=== PATIENT | male | born 1995 ===

== ENCOUNTER 2017-04-15 14:19 | Emergency (ER) | payer MEDICAID ==
[2017-04-15 14:28] VITALS: BMI 26.6
[2017-04-15 14:29] VITALS: BP 146/76; PULSE 77; RESP 16; TEMP 98.8; O2SAT 99
[2017-04-15 14:53] LABS: URINE APPEARANCE SL CLOUDY (CLEAR); URINE BILIRUBIN NEGATIVE (NEGATIVE); URINE BLOOD MODERATE (NEGATIVE); URINE COLOR YELLOW (YELLOW); URINE GLUCOSE (UA) NEGATIVE (NEGATIVE); URINE KETONE NEGATIVE (NEGATIVE); URINE LEUKOCYTE ESTERASE MODERATE Leu/uL (NEGATIVE); URINE PROTEIN 30 mg/dL (<30 mg/dL)
[2017-04-15 15:03] LABS: URINE BACTERIA SMALL (NEG); URINE EPITHELIAL CELLS 0 - 2 /hpf (0-5); URINE RBC 0 - 2 /hpf (0-2); URINE WBC TNTC /hpf (0-6)
[2017-04-15] MEDS ORDERED: cefTRIAXone (Rocephin) 250 mg Inj IM STA (15:12)
--- NOTE | 2017-04-15 15:12 | ED PDOC ---
Arrival/HPI - General Chief Complaint: Male Genitourinary Time Seen by Provider: 04/15/17 14:30 Historian: Patient - History of Present Illness Narrative History of Present Illness (Text): 04/15/17 14:50 21 y/o male, no significant pmh, nkda, c/o burning urinary sensation for the past 2 days. Pt. has been expericing urinary frequency and burning sensation for the past 2 days, concerning about the gonorrhea and chlamydia, admits not always wearing condoms when having sexual intercourse, no penile discharge or testicular pain, no pelvic or abdominal pain, no chest pain or shortness of breath, no other medical or psychological complaints. Past Medical History - Provider Review Nursing Documentation Reviewed: Yes - Psychiatric Hx Substance Use: No Family/Social History - Physician Review Nursing Documentation Reviewed: Yes Family/Social History: Unknown Family HX Smoking Status: Former Smoker Hx Alcohol Use: No Hx Substance Use: No Allergies/Home Meds Allergies/Adverse Reactions: Allergies shellfish derived Allergy (Verified 04/15/17 14:28) ANAPHYLAXIS Review of Systems - Review of Systems Constitutional: absent: Fatigue, Fevers Eyes: absent: Vision Changes ENT: absent: Hearing Changes Respiratory: absent: SOB, Cough Cardiovascular: absent: Chest Pain Gastrointestinal: absent: Abdominal Pain Genitourinary Male: Dysuria, Frequency. absent: Hematuria, Urinary Output Changes Musculoskeletal: absent: Arthralgias, Myalgias Skin: absent: Rash, Pruritis, Skin Lesions Physical Exam Vital Signs Reviewed: Yes Vital Signs Temp Pulse Resp BP Pulse Ox 04/15/17 14:28 98.8 F 77 16 146/76 99 Temperature: Afebrile Blood Pressure: Normal Pulse: Regular Respiratory Rate: Normal Appearance: Positive for: Well-Appearing, Non-Toxic, Comfortable Pain Distress: None Mental Status: Positive for: Alert and Oriented X 3 - Systems Exam Head: Present: Atraumatic, Normocephalic Pupils: Present: PERRL Extroacular Muscles: Present: EOMI Conjunctiva: Present: Normal Mouth: Present: Moist Mucous Membranes Neck: Present: Normal Range of Motion Respiratory/Chest: Present: Clear to Auscultation, Good Air Exchange. No: Respiratory Distress, Accessory Muscle Use Cardiovascular: Present: Regular Rate and Rhythm, Normal S1, S2. No: Murmurs Abdomen: Present: Normal Bowel Sounds. No: Tenderness, Distention, Peritoneal Signs Genitourinary Male: Present: Normal External Genitalia. No: Penile Discharge, Testicle Tenderness, Penile Swelling, Masses, Hernias, Testicle Swelling Back: Present: Normal Inspection Upper Extremity: Present: Normal Inspection. No: Cyanosis, Edema Lower Extremity: Present: Normal Inspection. No: Edema Neurological: Present: GCS=15, CN II-XII Intact, Speech Normal Skin: Present: Warm, Dry, Normal Color. No: Rashes Psychiatric: Present: Alert, Oriented x 3, Normal Insight, Normal Concentration Medical Decision Making ED Course and Treatment: 04/15/17 15:13 -UA show +UTI -gc/chlamydia ordered, pt. preferred propylatic treatment. -Discharge home with macrobid, use condom in the future all the time, notify all your sexual partners for the STD testing, follow up with your own pmd within 2 days, return to the ER for any new or worsening signs or symptoms. - Lab Interpretations Lab Results: Lab Results 04/15/17 14:33: Urine Color Yellow, Urine Appearance Sl cloudy, Urine pH 6.0, Ur Specific [place] >= 1.030, Urine Protein 30 H, Urine Glucose (UA) Negative, Urine Ketones Negative, Urine Blood Moderate H, Urine Nitrate Negative, Urine Bilirubin Negative, Urine Urobilinogen 1.0 H, Ur Leukocyte Esterase Moderate H, Urine RBC 0 - 2, Urine WBC Tntc, Ur Epithelial Cells 0 - 2, Urine Bacteria Small I have reviewed the lab results: Yes Interpretation: Abnormal lab values (+UTI) - PA / FINISHING TRIMMER / Resident Statement MD/DO has reviewed & agrees with the documentation as recorded. Disposition/Present on Arrival - Present on Arrival Any Indicators Present on Arrival: No History of DVT/PE: No History of Uncontrolled Diabetes: No Urinary Catheter: No History of Decub. Ulcer: No History Surgical Site Infection Following: None - Disposition Have Diagnosis and Disposition been Completed?: Yes Diagnosis: UTI (urinary tract infection), Dysuria, Possible exposure to STD Disposition: HOME/ ROUTINE Disposition Time: : Patient Plan: Discharge Condition: GOOD Additional Instructions: Discharge home with macrobid, use condom in the future all the time, notify all your sexual partners for the STD testing, follow up with your own pmd within 2 days, return to the ER for any new or worsening signs or symptoms. Prescriptions: Nitrofurantoin Macrocrystals [Macrobid] 100 mg PO BID #14 cap Phenazopyridine [Pyridium] 200 mg PO TID #6 tab Referrals: [facility] at [facility] [place] [Outside] - Follow up with primary Forms: WORK NOTE
== END 2017-04-15 15:36 | disposition home or self-care (01) ==
LOC: ED 14:19
DX: N39.0 Urinary tract infection, site not specified (principal); R30.0 Dysuria
CPT/HCPCS: 81001; 87086; 87491; 87591; 96372; 99283; J0696

== ENCOUNTER 2017-06-15 23:31 | Observation (INO) | payer MEDICAID ==
--- NOTE | 2017-06-16 00:19 | ED PDOC ---
Arrival/HPI - General Time Seen by Provider: 06/16/17 00:12 Historian: Patient - History of Present Illness Narrative History of Present Illness (Text): 06/16/17 00:16 22 y/o male, no significant pmh, nkda, c/o throat pain x 4 days with the fever and voice change. Pt. stated that he has been having the rt. sided throat pain x 4-5 days, had an episode of fever, associated with painful swallowing and voice change, no drooling, started on the augmentin 875/125 today as a single dose. Pt. has no chest pain or shortness of breath, no numbness or tingling, no palpitation. Pt. also stated that he has been feeling depressed and suicidal recently as one of his friends recently pass away. Pt. stated that he has thoughts of harming himself but no action taken. Past Medical History - Provider Review Nursing Documentation Reviewed: Yes - Psychiatric Hx Substance Use: No Family/Social History - Physician Review Nursing Documentation Reviewed: Yes Family/Social History: Unknown Family HX Smoking Status: Former Smoker Hx Alcohol Use: No Hx Substance Use: No Allergies/Home Meds Allergies/Adverse Reactions: Allergies shellfish derived Allergy (Verified 04/15/17 14:28) ANAPHYLAXIS Review of Systems - Review of Systems Constitutional: Fevers. absent: Fatigue ENT: Voice Changes, Sore Throat. absent: Hearing Changes Respiratory: absent: SOB, Cough, Sputum Cardiovascular: absent: Chest Pain Gastrointestinal: absent: Abdominal Pain, Nausea, Vomiting Musculoskeletal: absent: Arthralgias, Myalgias Neurological: absent: Headache, Dizziness Psychiatric: Depression, Suicidal Ideation. absent: Anxiety Physical Exam Vital Signs Temp Pulse Resp BP Pulse Ox 06/16/17 04:00 80 16 126/78 99 06/16/17 02:00 84 16 125/80 98 06/16/17 00:52 98.2 F 85 16 126/82 100 - Systems Exam Head: Present: Atraumatic, Normocephalic Pupils: Present: PERRL Extroacular Muscles: Present: EOMI Conjunctiva: Present: Normal Mouth: Present: Moist Mucous Membranes Pharnyx: Present: TONSILS ENLARGED (Rt. ), Peritonsilar Swelling (rt. side), Muffled/Hoarse Voice. No: Uvular Deviation, Strider, Soft Palate/Uvular Edema Nose (External): No: Abrasion, Contusion Nose (Internal): No: No Active Bleeding, Rhinorrhea, Septal Hematoma, Epistaxis Neck: Present: Normal Range of Motion, Trachea Midline. No: Meningeal Signs, MIDLINE TENDERNESS, Paraspinal Tenderness, Lymphadenopathy Respiratory/Chest: Present: Clear to Auscultation, Good Air Exchange. No: Respiratory Distress, Accessory Muscle Use Cardiovascular: Present: Regular Rate and Rhythm, Normal S1, S2. No: Murmurs Abdomen: Present: Normal Bowel Sounds. No: Tenderness, Distention, Peritoneal Signs, Rebound, Guarding Back: Present: Normal Inspection Upper Extremity: Present: Normal Inspection. No: Cyanosis, Edema Lower Extremity: Present: Normal Inspection. No: Edema Neurological: Present: GCS=15, Speech Normal, Motor Func Grossly Intact, Gait Normal, Memory Normal Skin: Present: Warm, Dry, Normal Color. No: Rashes Psychiatric: Present: Alert, Oriented x 3, Normal Insight, Normal Concentration Medical Decision Making ED Course and Treatment: 06/16/17 00:20 -labs/ua/uds -ekg/cxr -CT soft tissue neck -IV toradol/clindamycin/decadron -will call PES 06/16/17 03:38 -EKG: NSR @ 81 BPM, no ST elevation or depression, no T wave inversion -Chest x-ray: no active disease -CT soft tissue neck performed without the contrast as he claimed that he is allergic to contrast: inconclusive and can not rule out rt. peritonsillar abscess -Labs are non-significant -Pt. is airway patent. -Pt. is not medically clear or stable to be admitted to the psychiatric floor as he will need to be admitted after evaluated the PES [place]. -Pt. will need to be admitted medically to rule out rt. peritonsillar abscess as there is swelling with muffling sound on the rt. peritonsillar region. -I spoke to Dr. Kent about the case/labs/radiology result, agreed to be admitted medically with psychiatric consult. -I Spoke to the medical coding specialist as well, she agreed to evaluate the patient. -I spoke to Dr. Rankin and he will put in the admission -I spoke to the patient and he agreed to be admitted for medical and psychiatric care. - Lab Interpretations Lab Results: 06/16/17 01:05 06/16/17 01:05 Lab Results 06/16/17 01:05: Alcohol, Quantitative < 10 06/16/17 01:05: Sodium 137, Potassium 3.9, Chloride 98, Carbon Dioxide 28, Anion Gap 15, BUN 12, Creatinine 0.8, Est GFR ( Amer) > 60, Est GFR (Non- Af Amer) > 60, Random Glucose 85, Calcium 9.2, Total Bilirubin 1.1, AST 24, ALT 33, Alkaline Phosphatase 61, Total Protein 7.5, Albumin 4.5, Globulin 3.0, Albumin/Globulin Ratio 1.5 06/16/17 01:05: WBC 12.1 H, RBC 5.38, Hgb 13.6 L, Hct 41.1 L, MCV 76.4 L, MCH 25.3, MCHC 33.1, RDW 14.5, Plt Count 217, MPV 8.5, Gran % 68.6 H, Lymph % (Auto ) 14.9 L, [place] % (Auto) 16.0 H, Eos % (Auto) 0.4 L, Baso % (Auto) 0.1, Gran # 8.32 H, Lymph # 1.8, [place] # 1.9 H, Eos # 0.1, Baso # 0.01 I have reviewed the lab results: Yes Interpretation: No clinic. lab abnormalty - RAD Interpretation Radiology Orders: 06/16/17 00:22 CHEST PORTABLE [RAD] Stat 06/16/17 02:40 NECK SOFT TISSUE W/O CONTRAST [CT] Stat No active disease for chest xray. Compliance Coordinator: Radiologist - Medication Orders Current Medication Orders: Discontinued Medications Dexamethasone (Decadron Inj) 10 mg IVP STAT STA Stop: 06/16/17 00:23 Last Admin: 06/16/17 01:14 Dose: 10 mg Famotidine (Pepcid) 20 mg PO 1000,2200 NAVEEN Last Admin: 06/17/17 10:32 Dose: 20 mg Heparin Sodium (Porcine) (Heparin) 5,000 units SC Q12 NAVEEN PRN Reason: Protocol Last Admin: 06/16/17 21:27 Dose: 5,000 units Clindamycin Phosphate 900 mg/ (Sodium Chloride) 106 mls @ 106 mls/hr IVPB STAT STA PRN Reason: Protocol Stop: 06/16/17 01:21 Last Admin: 06/16/17 01:14 Dose: 106 mls/hr Sodium Chloride (Sodium Chloride 0.9%) 1,000 mls @ 999 mls/hr IV .Q1H1M STA Stop: 06/16/17 01:22 Last Admin: 06/16/17 01:15 Dose: 999 mls/hr Clindamycin Phosphate 900 mg/ (Sodium Chloride) 106 mls @ 106 mls/hr IVPB Q8 NAVEEN PRN Reason: Protocol Last Admin: 06/17/17 13:25 Dose: 106 mls/hr Sodium Chloride (Sodium Chloride 0.9%) 1,000 mls @ 100 mls/hr IV .Q10H NAVEEN Last Admin: 06/16/17 17:15 Dose: 100 mls/hr Iohexol (Omnipaque 350 100 Ml) Confirm Administered Dose 350 mg .ROUTE .STK-MED ONE Stop: 06/16/17 02:25 Ketorolac Tromethamine (Toradol) 30 mg IVP STAT STA Stop: 06/16/17 00:23 Last Admin: 06/16/17 01:13 Dose: 30 mg Lactobacillus Acidophilus (Bacid Acidophilus) 1 cap PO TID [facility] Last Admin: 06/17/17 14:02 Dose: 1 cap - PA / TITLE SEARCHER / Resident Statement MD/DO has reviewed & agrees with the documentation as recorded. Disposition/Present on Arrival - Present on Arrival Any Indicators Present on Arrival: No History of DVT/PE: No History of Uncontrolled Diabetes: No Urinary Catheter: No History of Decub. Ulcer: No History Surgical Site Infection Following: None - Disposition Have Diagnosis and Disposition been Completed?: Yes Diagnosis: Tonsillitis, Sensation of swollen throat, Change of voice, Depression, Suicidal thoughts Disposition: HOSPITALIZED Disposition Time: 03:44 Patient Plan: Admission Condition: STABLE
[2017-06-16 00:20] VITALS: BMI 32.3
[2017-06-16] MEDS ORDERED: Sodium Chloride 0.9% 1,000 ML IV STA (00:22)
[2017-06-16 01:16] LABS: BASO # 0.01 K/mm3 (0.0-2.0); BASO % 0.1 % (0.0-3.0); EOS # 0.1 (0.0-0.7); EOS % 0.4 % (1.5-5.0); GRAN # 8.32 (1.4-6.5); GRAN % 68.6 % (50.0-68.0); HEMOGLOBIN 13.6 gm/dL (14.0-18.0); LYMPH # 1.8 (1.2-3.4); LYMPH % 14.9 % (22.0-35.0); MEAN CELL VOLUME 76.4 fL (80.0-105.0); MEAN CORPUSCULAR HEMOGLOBIN 25.3 pg (25.0-35.0); MEAN CORPUSCULAR HGB CONC 33.1 g/dl (31.0-37.0); MEAN PLATELET VOLUME 8.5 fl (7.0-11.0); MONO # 1.9 (0.1-0.6); PLATELET COUNT 217 10^3/uL (120.0-450.0); RBC 5.38 10^6/uL (3.5-6.1); RED CELL DISTRIBUTION WIDTH 14.5 % (11.5-14.5); WHITE BLOOD COUNT 12.1 10^3/ul (4.5-11.0)
[2017-06-16 01:28] LABS: ALB/GLOB RATIO 1.5 (1.1-1.8); ALBUMIN 4.5 g/dL (3.0-4.8); ALT/SGPT 33 U/L (7-56); AST/SGOT 24 U/L (15-59); BLOOD UREA NITROGEN 12 mg/dL (7-21); CALCIUM 9.2 mg/dL (8.4-10.5); GFR AFRICAN-AMERICAN > 60; GFR NON-AFRICAN AMERICAN > 60
[2017-06-16] MEDS ORDERED: Iohexol 350 MG/100 ML VIAL ONE (02:24)
--- NOTE | 2017-06-16 03:09 | CT ---
EXAM: CT Neck Without Intravenous Contrast CLINICAL HISTORY: 22 years old, male; Pain; Neck pain and painful swallowing; Additional info: Rt. Peritonsillar swelling? TECHNIQUE: Axial computed tomography images of the neck without intravenous contrast. This CT exam was performed using one or more of the following dose reduction techniques: automated exposure control, adjustment of the mA and/or kV according to patient size, and/or use of iterative reconstruction technique. Coronal and sagittal reformatted images were created and reviewed. COMPARISON: No relevant prior studies available. FINDINGS: Limitations: Lack of intravenous contrast, limiting evaluation for abscess. Nasopharynx: Unremarkable. Oropharynx: Enlargement of RIGHT palatine tonsil with adjacent mucosal thickening of RIGHT lateral hypopharynx. Partial effacement of RIGHT vallecula and piriform sinus. Vague hypodensity within RIGHT peritonsillar region, suboptimally evaluated. Hypopharynx: See above. Larynx: See above. Trachea: Unremarkable. Retropharyngeal space: Unremarkable. Submandibular/parotid glands: Unremarkable. Glands are normal in size. Thyroid: Unremarkable. No enlarged or calcified nodules. Bones/joints: No acute fracture. Soft tissues: Unremarkable. Vasculature: No acute findings. Lymph nodes: Shotty cervical lymph nodes, likely reactive. Sinuses: Small RIGHT maxillary retention cyst. Lung apices: Unremarkable as visualized. IMPRESSION: 1. Findings compatible with RIGHT tonsillitis/pharyngitis. Peritonsillar abscess not excluded. Consider contrast CT. Clinical correlation and follow up are recommended to exclude underlying pathology. 2. Incidental/non-acute findings are described above.
--- NOTE | 2017-06-16 03:31 | CP.PCM.HP ---
<Jenniffer Yin - Last Filed: 06/16/17 05:18> History of Present Illness - History of Present Illness History of Present Illness: 22 year old M PMHx depression presents to ER with suicidal ideations and R throat swelling for 1 week. Patient reports he went to a hospital on Sunday and received a Z-Pack which did not help and he went to a clinic today and was discharged on amoxicillin. However he reported that he was started to develop fever, chills, and sweats and decided to come to the ED. Patient reported that in clinic he had a temp 100.2F. Upon examining patient, he had received steroid IM and thus reported the inflammation had subsided and that the pain was now 2-3/10. He reported that it felt like a dull, numb pain. However, earlier this week, the pain was so severe that he was unable to swallow liquids and could not eat well. He also reported a headache and sore throat. Patient denied changes in vision, hearing, dizziness, chest pain, palpitations, SOB, cough, abd pain, nausea, vomiting, bowel/bladder complaints, pain/swelling in his legs bilaterally. He did admit to suicidal ideations and feeling down, depressed, and lost. He denied having a plan. Patient also denied any homicidal ideations, auditory, and visual hallucinations. He denied any recent travel, sick contacts, and recent illnesses. PMD: None PMHx: depression Meds: denies ALL: shellfish PSurgHx: denies FamHx: denies SocHx: quit tobacco when he was 19 years old; socially drinks EtOH, smokes weed occasionally, works at [employer] and lives with a roommate Present on Admission - Present on Admission Any Indicators Present on Admission: No Review of Systems - Constitutional Constitutional: As Per HPI, Chills, Fever, Headache. absent: Weakness - EENT Eyes: As Per HPI. absent: Change in Vision Ears: As Per HPI. absent: Dizziness Nose/Mouth/Throat: As Per HPI, Sore Throat, Throat Swelling - Cardiovascular Cardiovascular: As Per HPI. absent: Chest Pain, Dyspnea - Respiratory Respiratory: As Per HPI. absent: Cough, Dyspnea, Chest Congestion - Gastrointestinal Gastrointestinal: As Per HPI. absent: Abdominal Pain, Constipation, Diarrhea, Nausea, Vomiting - Genitourinary Genitourinary: As Per HPI. absent: Dysuria, Hematuria, Pyuria - Musculoskeletal Musculoskeletal: As Per HPI. absent: Numbness, Tingling - Integumentary Integumentary: As Per HPI. absent: Dry Skin, Pruritus, Rash - Neurological Neurological: As Per HPI. absent: Dizziness, Headaches, Weakness - Psychiatric Psychiatric: As Per HPI, Depression, Suicidal Ideation - Endocrine Endocrine: As Per HPI. absent: Polydipsia, Polyphagia, Polyuria - Hematologic/Lymphatic Hematologic: As Per HPI. absent: Easy Bleeding, Easy Bruising, Lymphadenopathy Past Patient History - Infectious Disease Hx of Infectious Diseases: None - Past Social History Smoking Status: Former Smoker - CARDIAC Hx Cardiac Disorders: No Hx Hypertension: No - PULMONARY Hx Tuberculosis: No - NEUROLOGICAL HX Cerebrovascular Accident: No Hx Seizures: No - HEMATOLOGICAL/ONCOLOGICAL Hx Cancer: No Hx Human Immunodeficiency Virus (HIV): No - GENITOURINARY/GYNECOLOGICAL Hx Sexually Transmitted Disorders: No - PSYCHIATRIC Hx Substance Use: No - SURGICAL HISTORY Hx Surgeries: No Meds Allergies/Adverse Reactions: Allergies Allergy/AdvReac Type Severity Reaction Status Date / Time shellfish derived Allergy ANAPHYLAXIS Verified 04/15/17 14:28 Physical Exam - Constitutional Appears: Well, Non-toxic, No Acute Distress - Head Exam Head Exam: ATRAUMATIC, NORMAL INSPECTION, NORMOCEPHALIC - Eye Exam Eye Exam: EOMI, Normal appearance, PERRL. absent: Conjunctival injection, Scleral icterus Pupil Exam: NORMAL ACCOMODATION - ENT Exam ENT Exam: Mucous Membranes Moist Additional comments: R tonsils enlarged and R peritonsilar swelling No Uvular Deviation, Strider, Soft Palate/Uvular Edema, muffled/hoarse voice - Respiratory Exam Respiratory Exam: Clear to Auscultation Bilateral, NORMAL BREATHING PATTERN. absent: Accessory Muscle Use, Rales, Rhonchi, Wheezes, Respiratory Distress - Cardiovascular Exam Cardiovascular Exam: REGULAR RHYTHM, RRR, +S1. absent: Systolic Murmur - GI/Abdominal Exam GI & Abdominal Exam: Normal Bowel Sounds, Soft. absent: Firm, Guarding, Rigid, Tenderness - Extremities Exam Extremities exam: Positive for: normal capillary refill, normal inspection, pedal pulses present. Negative for: pedal edema, tenderness - Back Exam Back exam: NORMAL INSPECTION. absent: rash noted - Neurological Exam Neurological exam: Alert, Oriented x3 - Psychiatric Exam Psychiatric exam: Depressed, Flat Affect Results - Vital Signs Recent Vital Signs: Last Vital Signs Temp 98.2 F 06/16/17 00:52 Pulse 85 06/16/17 00:52 Resp 16 06/16/17 00:52 BP 126/82 06/16/17 00:52 Pulse Ox 100 06/16/17 00:52 - Labs Result Diagrams: 06/16/17 01:05 06/16/17 01:05 Labs: Laboratory Results - last 24 hr 06/16/17 06/16/17 06/16/17 01:05 01:05 01:05 WBC 12.1 H RBC 5.38 Hgb 13.6 L Hct 41.1 L MCV 76.4 L MCH 25.3 MCHC 33.1 RDW 14.5 Plt Count 217 MPV 8.5 Gran % 68.6 H Lymph % (Auto) 14.9 L [place] % (Auto) 16.0 H Eos % (Auto) 0.4 L Baso % (Auto) 0.1 Gran # 8.32 H Lymph # 1.8 [place] # 1.9 H Eos # 0.1 Baso # 0.01 Sodium 137 Potassium 3.9 Chloride 98 Carbon Dioxide 28 Anion Gap 15 BUN 12 Creatinine 0.8 Est GFR ( Amer) > 60 Est GFR (Non-Af Amer) > 60 Random Glucose 85 Calcium 9.2 Total Bilirubin 1.1 AST 24 ALT 33 Alkaline Phosphatase 61 Total Protein 7.5 Albumin 4.5 Globulin 3.0 Albumin/Globulin Ratio 1.5 Alcohol, Quantitative < 10 Assessment & Plan - Assessment and Plan (Free Text) Assessment: 22 year old M PMHx depression presents to ER with suicidal ideations and R throat swelling for 1 week Plan: R peritonsillitis -r/o abscess -CT soft tissue neck: right tonsillitis/pharyngitis. Peritonsillar abscess not excluded. Consider contrast CT -f/u blood culture -Clindamycin 900mg ivpb q8 -ENT Dr. Ureña consulted- f/u recommendations Depression and suicidal ideations -Psych Dr. Hidalgo consulted- f/u recommendations -1:1 sitter PPX -SCDs -Heparin 5000u sc q12 -Pepcid 20mg po bid -NPO -NS @ 100cc/hr -Florastor 1cap po tid Case discussed with Dr. Donte Yin PGY2 <Jacob Kent - Last Filed: 06/16/17 05:54> Results - Vital Signs Recent Vital Signs: Last Vital Signs Temp 98.2 F 06/16/17 00:52 Pulse 80 06/16/17 04:00 Resp 16 06/16/17 04:00 BP 126/78 06/16/17 04:00 Pulse Ox 99 06/16/17 04:00 - Labs Result Diagrams: 06/16/17 01:05 06/16/17 01:05 Attending/Attestation - Attestation I have personally seen and examined this patient.: Yes I have fully participated in the care of the patient.: Yes I have reviewed all pertinent clinical information: Yes Notes (Text): 06/16/17 05:53 Patient was seen when he was in the PES room in the ER. Agree with history, physical examination, assessment and plan.
[2017-06-16] MEDS: Sodium Chloride 0.9% 1,000 ML IV SCH ×2 (05:37→17:15)
[2017-06-16 06:25] VITALS: RESP 20; O2SAT 100
--- NOTE | 2017-06-16 08:35 | RAD ---
HISTORY: medical clearance COMPARISON: No prior. FINDINGS: LUNGS: No active pulmonary disease. PLEURA: No significant pleural effusion identified, no pneumothorax apparent. CARDIOVASCULAR: Normal. OSSEOUS STRUCTURES: No significant abnormalities. VISUALIZED UPPER ABDOMEN: Normal. OTHER FINDINGS: None. IMPRESSION: No active disease.
[2017-06-16] MEDS: Lactobacillus Acidophilus 500 MU Cap PO SCH ×3 (09:43→17:14)
--- NOTE | 2017-06-16 11:08 | CARD ---
APPROVED REPORT EKG Measurement Heart [id number] <Conclusion> Normal sinus rhythm Minimal voltage criteria for LVH, may be normal variant Borderline ECG
--- NOTE | 2017-06-17 00:21 | CON ---
DATE: 06/16/2017 EAR, NOSE, AND THROAT CONSULTATION REFERRING PHYSICIAN: Dr. Jenniffer Yin. REASON FOR CONSULTATION: Rule out peritonsillar abscess. HISTORY OF PRESENT ILLNESS: This is a 22-year-old male with past medical history of depression and also previous peritonsillar abscess, who presents to [facility] with throat pain and throat swelling that started approximately 5 days ago. The patient reports he went to the hospital and received Z-Kalin which did not help with the symptoms. Afterwards, he went to the clinic and was given amoxicillin. However, that also did not help with the symptoms. At home, he started to develop fever, chills, and throat pain became worse, therefore, he came to the emergency room. In the emergency room, the patient had a CT scan of his neck which was noncontrast and demonstrated enlargement of the right palatine tonsil with adjacent mucosal thickening. However, no discrete abscess was able to be visualized. The patient was subsequently admitted and placed on clindamycin and given Decadron, Pepcid, and Toradol. The ENT has been consulted to rule out peritonsillar abscess. Upon examination, the patient states that he has been having poor appetite and unable to eat. He also reports that 4 months ago he had a similar presentation and his peritonsillar abscess was drained by an manager fleet in the office. The patient also states that he is feeling better since admission with decreased pain. He denies drooling, odynophagia, shortness of breath, difficulty breathing, fevers, and chills. PAST MEDICAL HISTORY: Significant for previous peritonsillar abscess and depression. PAST SURGICAL HISTORY: None. MEDICATIONS: None. ALLERGIES: SHELLFISH. SOCIAL HISTORY: Ex-tobacco smoker. Drinks alcohol socially and smokes marijuana occasionally. REVIEW OF SYSTEMS: Review of systems is negative as per HPI. PHYSICAL EXAMINATION VITAL SIGNS: Temperature of 98.7, pulse rate 78, blood pressure 132/81, respirations 20, and O2 saturation 100% on room air. GENERAL: He is awake, alert, and oriented x3, in no acute distress, sitting comfortably. HEENT: Eyes; extraocular movements intact. Ears; external auricles unremarkable. Nose; patent bilaterally. No discharge and no epistaxis. Oral cavity/oropharynx; lips are unremarkable. Tongue is mobile and midline. Mucosa is moist. There is soft palate asymmetry with bulging of the right soft palate. There is enlargement of the right tonsil about 2+ and the left tonsil is about 1+. There is slight uvula deviation to the left. There is no tonsillar exudates. There is no pharyngeal erythema or edema. NECK: Soft, slightly tender to palpation. No lymphadenopathy. Trachea midline. No thyromegaly. LUNGS: Respirations are nonlabored and equal bilaterally. LABORATORY DATA: He has a white count of 12.1, hemoglobin 13.6, hematocrit 41.1, and platelets 217. IMAGING: He has a soft tissue neck CAT scan which reads enlargement of right palatine tonsil with adjacent mucosal thickening of right lateral hypopharynx, partial effacement of right vallecula and pyriform sinus, vague hypodensity within right peritonsillar region, suboptimally evaluated. Findings are compatible with a right tonsillitis, pharyngitis, peritonsillar abscess cannot be excluded. PROCEDURE: Incision and drainage of right peritonsillar abscess. After obtaining verbal and informed consent, Cetacaine spray was used to numb the right peritonsillar region. Afterwards, 1% lidocaine was used to add local anesthesia to the right peritonsillar region. Afterwards, an 18-gauge needle and a 10 mL syringe was used to enter the right peritonsillar space with 3 mL purulent material being drawn which was sent for culture to the lab. ASSESSMENT AND PLAN: This is a 22-year-old male with past medical history of prior peritonsillar abscess, who presents again with peritonsillar abscess, status post incision and drainage at the bedside. At this point, we would recommend that the patient stay overnight for an additional several courses of IV antibiotics and he would be okay to discharge home tomorrow morning or afternoon. At that point, I would recommend discharging home on clindamycin p.o. x7 days. I would also like to follow up with the culture from the peritonsillar abscess. At this point, the patient has been n.p.o., but can be started on a regular diet. In addition, the patient was instructed to follow up with our office to schedule a followup tonsillectomy as he has had 2 episodes of peritonsillar abscess at this point, after which we usually recommend tonsillectomy. The patient verbalizes understanding with the plan and was in agreement. The remainder of the management is up to medical team. Thank you for allowing us to participate in this patient's care. Keaton Ureña DO
[2017-06-17 07:56] LABS: BASO # 0.01 K/mm3 (0.0-2.0); BASO % 0.1 % (0.0-3.0); EOS # 0.1 (0.0-0.7); EOS % 0.9 % (1.5-5.0); GRAN # 3.62 (1.4-6.5); GRAN % 51.9 % (50.0-68.0); HEMOGLOBIN 13.2 gm/dL (14.0-18.0); LYMPH # 2.3 (1.2-3.4); LYMPH % 32.6 % (22.0-35.0); MEAN CELL VOLUME 76.5 fL (80.0-105.0); MEAN CORPUSCULAR HEMOGLOBIN 24.6 pg (25.0-35.0); MEAN CORPUSCULAR HGB CONC 32.1 g/dl (31.0-37.0); MEAN PLATELET VOLUME 8.8 fl (7.0-11.0); MONO % 14.5 % (1.0-6.0); PLATELET COUNT 249 10^3/uL (120.0-450.0); RBC 5.37 10^6/uL (3.5-6.1); RED CELL DISTRIBUTION WIDTH 14.4 % (11.5-14.5)
[2017-06-17 08:19] LABS: ALB/GLOB RATIO 1.2 (1.1-1.8); ALBUMIN 3.9 g/dL (3.0-4.8); ALT/SGPT 23 U/L (7-56); AST/SGOT 19 U/L (15-59); BLOOD UREA NITROGEN 12 mg/dL (7-21); GFR AFRICAN-AMERICAN > 60; GFR NON-AFRICAN AMERICAN > 60
[2017-06-17 08:33] VITALS: BP 133/62; PULSE 73; TEMP 97.5
[2017-06-17] MEDS: Lactobacillus Acidophilus 500 MU Cap PO SCH ×2 (10:32→14:02)
--- NOTE | 2017-06-17 11:49 | CON ---
DATE: 06/17/2017 HISTORY OF PRESENT ILLNESS: The patient is a 22-year-old male with past medical history of depression, no hospitalization, two prior suicide attempts. No current outpatient treatment or medication, who is being treated on the medical floor for peritonsillar abscess. Psychiatry was consulted for the patient's report of depression and active suicidal thoughts. I reviewed recent notes and the patient at bedside, the patient is alert and well oriented to circumstances, month and year as well as location. He presents as a very good and incredible historian during interview today. The patient reports history of depression since late 03/2017, indicates that he is suffering with some personal family issues and in general "feeling stuck and lost." He endorses symptoms of anhedonia, but has been able to go to the gym and socialize with friends. Had poor sleep, however, this has improved and moodiness as well as feeling overwhelmed. The patient does admit to intermittent fleeting thoughts of wishes, however, denies having any active suicidal thoughts. Another stressor includes one of his friends committed suicide two weeks ago. 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 The patient is coherent, goal directed. Denies any hallucinations. Eye contact is good and affect is congruent to reported mood. He has been in very good control in the unit and insight and judgement are considered to be good. Medications, vitals and labs were reviewed by this provider. PSYCHIATRIC HISTORY: The patient denies any psychiatric admissions. Denies any history of psychiatric medications or seeing therapist or a psychiatrist. The patient reports suicide attempts, one as a 17-year-old, he had considered hanging himself and one as an 20-year-old, he overdosed on pills, however, he woke up the next day and did not seek psychiatric help. FAMILY HISTORY: Text. SOCIAL HISTORY: The patient was born and raised in [place]. He is single. He has no children. He lives with his roommate. He graduated high school. 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 He used to smoke marijuana daily, however, he has cut down and now only smokes very occasionally, last use was 2-1/2 weeks ago. The patient is actually in the process of quitting. Denies any other drug use. IMPRESSION: Major depression, moderate. RECOMMENDATIONS: The patient at this time defers on initiating an antidepressant, however, he is quite open to obtaining therapy and psychiatric referral, while he is being followup on once he is discharged. He is psychiatrically clear for discharge. He does not present to be an active danger to himself and has demonstrated very good insight and judgement including his current symptoms and he is quite organized and has good support system. Psychiatrist signed off at this time. Ta Kimble MD
--- NOTE | 2017-06-17 17:37 | CP.PCM.DIS ---
Provider - Provider Date of Admission: 06/16/17 03:30 Attending physician: Helder Short MD Primary care physician: None Consults: Psychiatry: ENT: Time Spent in preparation of Discharge (in minutes): 30 Hospital Course - Lab Results Lab Results: Micro Results 06/16/17 07:43 Blood-Venous Blood Culture - Preliminary NO GROWTH AFTER 24 HOURS 08 07:43 Blood-Venous Blood Culture - Preliminary NO GROWTH AFTER 24 HOURS Most Recent Lab Values WBC 7.0 10^3/ul (4.5-11.0) D 06/17/17 07:00 RBC 5.37 10^6/uL (3.5-6.1) 06/17/17 07:00 Hgb 13.2 gm/dL (14.0-18.0) L 06/17/17 07:00 Hct 41.1 % (42.0-52.0) L 06/17/17 07:00 MCV 76.5 fL (80.0-105.0) L 06/17/17 07:00 MCH 24.6 pg (25.0-35.0) L 06/17/17 07:00 MCHC 32.1 g/dl (31.0-37.0) 06/17/17 07:00 RDW 14.4 % (11.5-14.5) 06/17/17 07:00 Plt Count 249 10^3/uL (120.0-450.0) 06/17/17 07:00 MPV 8.8 fl (7.0-11.0) 06/17/17 07:00 Gran % 51.9 % (50.0-68.0) 06/17/17 07:00 Lymph % (Auto) 32.6 % (22.0-35.0) 06/17/17 07:00 [place] % (Auto) 14.5 % (1.0-6.0) H 06/17/17 07:00 Eos % (Auto) 0.9 % (1.5-5.0) L 06/17/17 07:00 Baso % (Auto) 0.1 % (0.0-3.0) 06/17/17 07:00 Gran # 3.62 (1.4-6.5) 06/17/17 07:00 Lymph # 2.3 (1.2-3.4) 06/17/17 07:00 [place] # 1.0 (0.1-0.6) H 06/17/17 07:00 Eos # 0.1 (0.0-0.7) 06/17/17 07:00 Baso # 0.01 K/mm3 (0.0-2.0) 06/17/17 07:00 Sodium 137 mmol/L (132-148) 06/17/17 07:00 Potassium 4.0 mmol/L (3.6-5.0) 06/17/17 07:00 Chloride 102 mmol/L (98-107) 06/17/17 07:00 Carbon Dioxide 26 mmol/L (21-33) 06/17/17 07:00 Anion Gap 13 (10-20) 06/17/17 07:00 BUN 12 mg/dL (7-21) 06/17/17 07:00 Creatinine 0.8 mg/dL (0.5-1.4) 06/17/17 07:00 Est GFR ( Amer) > 60 06/17/17 07:00 Est GFR (Non-Af Amer) > 60 06/17/17 07:00 Random Glucose 83 mg/dL (70-110) 06/17/17 07:00 Calcium 9.0 mg/dL (8.4-10.5) 06/17/17 07:00 Phosphorus 3.4 mg/dL (2.5-4.5) 06/17/17 07:00 Magnesium 2.0 mg/dL (1.7-2.2) 06/17/17 07:00 Total Bilirubin 0.6 mg/dL (0.2-1.3) 06/17/17 07:00 AST 19 U/L (15-59) 06/17/17 07:00 ALT 23 U/L (7-56) 06/17/17 07:00 Alkaline Phosphatase 52 U/L (38-133) 06/17/17 07:00 Total Protein 7.1 g/dL (5.8-8.3) 06/17/17 07:00 Albumin 3.9 g/dL (3.0-4.8) 06/17/17 07:00 Globulin 3.2 gm/dL 06/17/17 07:00 Albumin/Globulin Ratio 1.2 (1.1-1.8) 06/17/17 07:00 Alcohol, Quantitative < 10 mg/dL (0-10) 06/16/17 01:05 - Hospital Course Hospital Course: Patient is a 22 year old male who presented to the [facility] [place] [place] ED with tonsillitis and tonsilar abscess. Discharge Exam - Head Exam Head Exam: ATRAUMATIC, NORMAL INSPECTION, NORMOCEPHALIC - Eye Exam Eye Exam: EOMI, Normal appearance, PERRL Pupil Exam: PERRL - ENT Exam ENT Exam: Mucous Membranes Dry, Mucous Membranes Moist, Normal Exam Additional comments: Tonsillar swelling diminished from admission - Respiratory Exam Respiratory Exam: Clear to PA & Lateral, NORMAL BREATHING PATTERN, UNREMARKABLE - Cardiovascular Exam Cardiovascular Exam: REGULAR RHYTHM, +S1, +S2 - GI/Abdominal Exam GI & Abdominal Exam: Normal Bowel Sounds, Unremarkable - Extremities Exam Extremities exam: full ROM, normal capillary refill, pedal pulses present - Neurological Exam Neurological exam: Alert, CN II-XII Intact, Normal Gait, Oriented x3, Reflexes Normal - Psychiatric Exam Psychiatric exam: Normal Affect, Normal Mood - Skin Skin Exam: Dry, Intact, Normal Color, Warm Discharge Plan - Discharge Medications Prescriptions: Clindamycin [Cleocin] 300 mg PO Q8 #21 cap - Follow Up Plan Condition: STABLE Disposition: HOME/ ROUTINE Instructions: Clindamycin (By mouth), How to Stop Smoking (GEN), Peritonsillar Abscess (GEN), Depression (DC), Regular Diet (GEN), Suicide Prevention for Adults (DC) Additional Instructions: 1. Follow up with PMD of choice. 2. Follow up with ENT Dr. ureña in 1 week. 3. Complete antibiotics. 4. [facility] with [facility] needed. Referrals: Keaton Ureña DO [Staff Provider] -
== END 2017-06-17 15:26 | disposition home or self-care (01) ==
LOC: ED 23:31 → ERH 06-16 03:30 → 5RSO 06-16 05:17
PROVIDERS: ADMIT Internal Medicine; ATTEND Internal Medicine
DX: J03.90 Acute tonsillitis, unspecified (principal); J36 Peritonsillar abscess; F12.90 Cannabis use, unspecified, uncomplicated; F32.1 Major depressive disorder, single episode, moderate; R45.851 Suicidal ideations; Z87.891 Personal history of nicotine dependence; Z87.892 Personal history of anaphylaxis; Z91.013 Allergy to seafood; R40.2412 Glasgow coma scale score 13-15, at arrival to emergency department; J02.9 Acute pharyngitis, unspecified; Z91.5 Personal history of self-harm
CPT/HCPCS: 36415; 42700; 70490; 71010; 80053; 80320; 83735; 84100; 85025; 86703; 87040; 87070; 90791; 93005; 96365; 96375; 99285; G0378; J1100; J1644; J1885; J7040; Q9967

== ENCOUNTER 2017-09-03 05:59 | Emergency (ER) | payer MEDICAID ==
[2017-09-03 05:59] VITALS: BMI 32.3
[2017-09-03 06:33] VITALS: O2SAT 99
--- NOTE | 2017-09-03 07:12 | ED PDOC ---
Arrival/HPI - General Chief Complaint: ENT Problem Time Seen by Provider: 09/03/17 07:03 Historian: Patient - History of Present Illness Narrative History of Present Illness (Text): 09/03/17 07:00 Mario Fuentes is a 22 year old male, whose past medical history includes peritonsillar abscess, who presents to the emergency department complaining of a sore throat for one day. Patient denies any fever, cough, headache, shortness of breath, chest pain, nausea, vomiting, or other complaints. Time/Duration: 24 hours Symptom Onset: Sudden Symptom Course: Unchanged Past Medical History - Provider Review Nursing Documentation Reviewed: Yes - Infectious Disease Hx of Infectious Diseases: None - Cardiac Hx Cardiac Disorders: No - Pulmonary Hx Respiratory Disorders: No - Neurological Hx Neurological Disorder: No - HEENT Hx HEENT Disorder: No - Renal Hx Renal Disorder: No - Endocrine/Metabolic Hx Endocrine Disorders: No - Hematological/Oncological Hx Blood Disorders: No - Integumentary Hx Dermatological Disorder: No - Musculoskeletal/Rheumatological Hx Falls: No - Gastrointestinal Hx Gastrointestinal Disorders: No - Genitourinary/Gynecological Hx Genitourinary Disorders: No - Psychiatric Hx Psychophysiologic Disorder: Yes Hx Depression: Yes (NEW ONSET) Hx Substance Use: No Family/Social History - Physician Review Nursing Documentation Reviewed: Yes Family/Social History: Unknown Family HX Smoking Status: Former Smoker Hx Alcohol Use: No Hx Substance Use: No Allergies/Home Meds Allergies/Adverse Reactions: Allergies shellfish derived Allergy (Verified 09/03/17 06:28) ANAPHYLAXIS Review of Systems - Review of Systems Constitutional: absent: Fevers ENT: Sore Throat Respiratory: absent: SOB, Cough Cardiovascular: absent: Chest Pain Neurological: absent: Headache Physical Exam Vital Signs Reviewed: Yes Vital Signs Temp Pulse Resp BP Pulse Ox 09/03/17 09:35 99.6 F 88 17 116/79 99 09/03/17 07:38 101 F H 09/03/17 06:29 102.8 F H 100 H 18 125/76 99 Temperature: Febrile Blood Pressure: Normal Pulse: Tachycardic Respiratory Rate: Normal Appearance: Positive for: Well-Appearing, Non-Toxic, Comfortable Pain Distress: None Mental Status: Positive for: Alert and Oriented X 3 - Systems Exam Head: Present: Atraumatic, Normocephalic Pharnyx: Present: EXUDATE, Peritonsilar Swelling (right peritonsilar swelling) Neck: Present: Normal Range of Motion Respiratory/Chest: Present: Clear to Auscultation, Good Air Exchange. No: Respiratory Distress, Accessory Muscle Use Cardiovascular: Present: Regular Rate and Rhythm, Normal S1, S2. No: Murmurs Neurological: Present: GCS=15, CN II-XII Intact, Speech Normal Skin: Present: Warm, Dry, Normal Color. No: Rashes Psychiatric: Present: Alert, Oriented x 3, Normal Insight, Normal Concentration Medical Decision Making ED Course and Treatment: 09/03/17 08:[address]: Creator : Charlene Gleason FINDINGS: NASOPHARYNX: Within normal limits. SUPRAHYOID NECK: There is asymmetric enlargement of the right tonsil with abnormal low attenuation in the peritonsillar region extending to the parapharyngeal space. The oral cavity, parapharyngeal space and retropharyngeal space. INFRAHYOID NECK: The larynx, hypopharynx, and supraglottic space are grossly within normal limits. Vocal cords intact. GLANDS: Parotid and submandibular glands unremarkable. Normal size thyroid gland , without nodule. LYMPH NODES: There are prominent bilateral cervical chain lymph nodes with. CERVICAL SPINE: No fracture or focal lesion. OTHER FINDINGS: The visualized lungs are clear. IMPRESSION: Findings are most compatible with acute right tonsillitis. Peritonsillar abscess cannot be excluded in the absence of intravenous contrast. Reactive cervical lymphadenopathy. 09/03/17 09:20 Case was discussed with Dr. Stevens, who advices patient to report to his office. The patient was informed about the plan and treatment. - Lab Interpretations Lab Results: Lab Results 09/03/17 07:18: Grp A Beta Strep Ag Negative I have reviewed the lab results: Yes - RAD Interpretation Radiology Orders: 09/03/17 NECK SOFT TISSUE W/O CONTRAST [CT] Stat Molder Bench: Radiologist - Medication Orders Current Medication Orders: Discontinued Medications Acetaminophen (Tylenol 325mg Tab) 975 mg PO STAT STA Stop: 09/03/17 07:08 Last Admin: 09/03/17 09:40 Dose: Clindamycin HCl (Cleocin) 300 mg PO STAT STA PRN Reason: Protocol Stop: 09/03/17 09:21 Last Admin: 09/03/17 09:39 Dose: 300 mg - Scribe Statement The provider has reviewed the documentation as recorded by the Nase Sandra Ayers Provider Scribe Attestation: All medical record entries made by the [place] were at my direction and personally dictated by me. I have reviewed the chart and agree that the record accurately reflects my personal performance of the history, physical exam, medical decision making, and the department course for this patient. I have also personally directed, reviewed, and agree with the discharge instructions and disposition. Disposition/Present on Arrival - Present on Arrival Any Indicators Present on Arrival: No History of DVT/PE: No History of Uncontrolled Diabetes: No Urinary Catheter: No History of Decub. Ulcer: No History Surgical Site Infection Following: None - Disposition Have Diagnosis and Disposition been Completed?: Yes Diagnosis: Tonsillitis Disposition: HOME/ ROUTINE Disposition Time: 10:00 Condition: STABLE Discharge Instructions (ExitCare): Pharyngitis (ED), Peritonsillar Abscess (ED) Additional Instructions: please see ENT in the office at this time. they are expecting to see you in the office Prescriptions: Clindamycin [Cleocin] 300 mg PO Q8 #21 cap Referrals: James Stevens DO [Staff Provider] - Follow up with primary Forms: [facility] [facility] ([place])
--- NOTE | 2017-09-03 08:47 | CT ---
PROCEDURE: CT NECK WITHOUT CONTRAST HISTORY: Sore throat COMPARISON: None. TECHNIQUE: CT of the neck without intravenous contrast. Coronal and sagittal reformats generated. Examination is limited in the absence of intravenous contrast. Radiation dose: DLP 409.15 mGy-cm This CT exam was performed using one or more of the following dose reduction techniques: Automated exposure control, adjustment of the mA and/or kV according to patient size, and/or use of iterative reconstruction technique. FINDINGS: NASOPHARYNX: Within normal limits. SUPRAHYOID NECK: There is asymmetric enlargement of the right tonsil with abnormal low attenuation in the peritonsillar region extending to the parapharyngeal space. The oral cavity, parapharyngeal space and retropharyngeal space. INFRAHYOID NECK: The larynx, hypopharynx, and supraglottic space are grossly within normal limits. Vocal cords intact. GLANDS: Parotid and submandibular glands unremarkable. Normal size thyroid gland, without nodule. LYMPH NODES: There are prominent bilateral cervical chain lymph nodes with. CERVICAL SPINE: No fracture or focal lesion. OTHER FINDINGS: The visualized lungs are clear. IMPRESSION: Findings are most compatible with acute right tonsillitis. Peritonsillar abscess cannot be excluded in the absence of intravenous contrast. Reactive cervical lymphadenopathy.
[2017-09-03 09:36] VITALS: BP 116/79; PULSE 88; RESP 17; TEMP 99.6
== END 2017-09-03 09:41 | disposition home or self-care (01) ==
LOC: ED 05:59
DX: J03.90 Acute tonsillitis, unspecified (principal); Z87.891 Personal history of nicotine dependence

== ENCOUNTER 2017-12-26 17:21 | Emergency (ER) | payer MEDICAID ==
[2017-12-26 17:22] VITALS: BMI 32.3
[2017-12-26 17:45] VITALS: BP 125/79; PULSE 70; RESP 16; TEMP 98.4; O2SAT 100
--- NOTE | 2017-12-26 18:06 | ED PDOC ---
Arrival/HPI - General Chief Complaint: ENT Problem Time Seen by Provider: 12/26/17 18:02 Historian: Patient - History of Present Illness Narrative History of Present Illness (Text): 12/26/17 18:03 Pt is a 22 year old male with a past medical history of cerumen impaction over the years, complains of left ear pain x 1 month. Pt saw his PMD, Dr. Florentino Arzate today who attempted to irrigate the left ear but could not remove the cerumen. Pt is here for further treatment. States he has left temporal pain only and denies any other complaints at this time. Time/Duration: > month Symptom Onset: Gradual Symptom Course: Unchanged Quality: Aching, Pressure Severity Level: Mild Activities at Onset: Light Context: Home Past Medical History - Provider Review Nursing Documentation Reviewed: Yes - Travel History Have you recently traveled outside US w/in the past 3 mons?: No - Infectious Disease Hx of Infectious Diseases: None - Cardiac Hx Cardiac Disorders: No - Pulmonary Hx Respiratory Disorders: Yes Other/Comment: FLU - Neurological Hx Neurological Disorder: No - HEENT Hx HEENT Disorder: Yes Other/Comment: CLOGGED EAR - Renal Hx Renal Disorder: No - Endocrine/Metabolic Hx Endocrine Disorders: No - Hematological/Oncological Hx Blood Disorders: No - Integumentary Hx Dermatological Disorder: No - Musculoskeletal/Rheumatological Hx Musculoskeletal Disorders: No - Gastrointestinal Hx Gastrointestinal Disorders: No - Genitourinary/Gynecological Hx Genitourinary Disorders: No - Psychiatric Hx Psychophysiologic Disorder: Yes Hx Depression: Yes (NEW ONSET) Hx Substance Use: No Family/Social History - Physician Review Nursing Documentation Reviewed: Yes Family/Social History: Unknown Family HX Smoking Status: Former Smoker Hx Alcohol Use: No Hx Substance Use: No Allergies/Home Meds Allergies/Adverse Reactions: Allergies shellfish derived Allergy (Verified 12/26/17 17:40) ANAPHYLAXIS Review of Systems - Review of Systems Constitutional: Normal Eyes: Normal ENT: Hearing Changes (diminished right ear hearing) Respiratory: Normal Cardiovascular: Normal Gastrointestinal: Normal Genitourinary Male: Normal Musculoskeletal: Normal Skin: Normal Neurological: Normal Endocrine: Normal Hemo/Lymphatic: Normal Psychiatric: Normal Physical Exam Vital Signs Reviewed: Yes Vital Signs Temp Pulse Resp BP Pulse Ox 12/26/17 17:43 98.4 F 70 16 125/79 100 Temperature: Afebrile Blood Pressure: Normal Pulse: Regular Respiratory Rate: Normal Appearance: Positive for: Well-Appearing, Non-Toxic, Comfortable Pain Distress: None Mental Status: Positive for: Alert and Oriented X 3 - Systems Exam Head: Present: Atraumatic, Normocephalic Pupils: Present: PERRL Extroacular Muscles: Present: EOMI Conjunctiva: Present: Normal Ears: Present: Normal Canal, Other (right ear cerumen impaction). No: Normal, NORMAL TM, Erythema, TM Bulging, Fluid, TM Perf Mouth: Present: Moist Mucous Membranes Neck: Present: Normal Range of Motion Respiratory/Chest: Present: Clear to Auscultation, Good Air Exchange. No: Respiratory Distress, Accessory Muscle Use Cardiovascular: Present: Regular Rate and Rhythm, Normal S1, S2. No: Murmurs Abdomen: Present: Normal Bowel Sounds. No: Tenderness, Distention, Peritoneal Signs Back: Present: Normal Inspection Upper Extremity: Present: Normal Inspection. No: Cyanosis, Edema Lower Extremity: Present: Normal Inspection. No: Edema Neurological: Present: GCS=15, CN II-XII Intact, Speech Normal Skin: Present: Warm, Dry, Normal Color. No: Rashes Psychiatric: Present: Alert, Oriented x 3, Normal Insight, Normal Concentration Medical Decision Making ED Course and Treatment: 12/26/17 18:05 Impression Pt is a 22 year old male with a past medical history of cerumen impaction over the years, complains of left ear pain x 1 month. Plan irrigate left ear with H2O2 mix assess and dipso home w Debrox drops Progress Note After irrigation and removal of large amounts of cerumen of the left ear, hearing returned and ear pain dissipated. VSS, instructed pt on prevention of impaction and use of Debrox Follow up with the PMD in the next few days - Procedure PROCEDURE NOTE (Text): 12/26/17 18:41 Pt was draped and prepped and informed of procedure A mixture of H2O2 and warm water was prepared, drawn up into a 10cc syringe Approx 1cc was infused into the left ear and held for 5 mins to soften the cerumen Fluid was drained, followed by steady irrigation using mild pressure from the syringe Large amounts of cerumen were removed via the irrigation process; pt felt immediate relief and hearing returned. Pt tolerated the procedure well with no issues 12/27/17 11:49 Disposition/Present on Arrival - Present on Arrival Any Indicators Present on Arrival: Yes History of DVT/PE: No History of Uncontrolled Diabetes: No Urinary Catheter: No History of Decub. Ulcer: No History Surgical Site Infection Following: None - Disposition Have Diagnosis and Disposition been Completed?: Yes Diagnosis: Impacted cerumen, left ear Disposition: HOME/ ROUTINE Disposition Time: 18:57 Patient Plan: Discharge Condition: STABLE Discharge Instructions (ExitCare): Carbamide Peroxide (Into the ear), Cerumen Impaction (ED) Additional Instructions: Dear Mario Please use the Debrox in the right ear as well to prevent build up of wax. If you experience any alarming symptoms in the next 24 hour, return to the emergency department. Otherwise, follow up with your primary doctor in the next week. Prescriptions: Carbamide Peroxide [Debrox 15 Ml] 5 - 10 drop OT BID 4 Days #1 bottle Referrals: Florentino Arzate MD [Primary Care Provider] - Follow up with primary Forms: [facility] (Sinhala)
== END 2017-12-26 19:05 | disposition home or self-care (01) ==
LOC: ED 17:21
DX: H61.22 Impacted cerumen, left ear (principal)

== ENCOUNTER 2018-02-05 12:09 | Emergency (ER) | payer MEDICAID ==
--- NOTE | 2018-02-05 12:24 | ED PDOC ---
Arrival/HPI - General Chief Complaint: Trauma Time Seen by Provider: 02/05/18 12:23 Historian: Patient - History of Present Illness Narrative History of Present Illness (Text): 02/05/18 12:49 pt p/w + s/p trip and fall while [place] the train station [place]/prior to ED arrival ; pt states it was an accident as there was black ice and he was in a hurry; pt ran and slipped on black ice and fell and injured his head/left sided, + felt immediately dazed and + pain, no loc pre/post fall, no fever/chills/sweats, no cp/sob/palpitations, no abd pain, no n/v, no numbness/tingling, no urinary/ bowel changes; pt states he braced fall with outstretched hands and right knee, MILD pain to right knee; pt was able to get up and ambulate on his own; pt walked from the train station to ED for evaluation pt denied other complaints pt is here for further eval. pt is right hand dominate PCP: NONE Time/Duration: Prior to Arrival Symptom Onset: Sudden Quality: Throbbing Severity Level: Mild Activities at Onset: Other (walking) Context: Walking, Other (at train station) Past Medical History - Provider Review Nursing Documentation Reviewed: Yes - Travel History Have you recently traveled outside US w/in the past 3 mons?: No - Past History Past History: No Previous - Infectious Disease Hx of Infectious Diseases: None - Reproductive Currently Lactating: No - Cardiac Hx Cardiac Disorders: No - Pulmonary Hx Respiratory Disorders: Yes Other/Comment: FLU - Neurological Hx Neurological Disorder: No - HEENT Hx HEENT Disorder: Yes Other/Comment: CLOGGED EAR - Renal Hx Renal Disorder: No - Endocrine/Metabolic Hx Endocrine Disorders: No - Hematological/Oncological Hx Blood Disorders: No - Integumentary Hx Dermatological Disorder: No - Musculoskeletal/Rheumatological Hx Musculoskeletal Disorders: No - Gastrointestinal Hx Gastrointestinal Disorders: No - Genitourinary/Gynecological Hx Genitourinary Disorders: No - Psychiatric Hx Psychophysiologic Disorder: Yes Hx Depression: Yes (NEW ONSET) Hx Substance Use: No Family/Social History - Physician Review Nursing Documentation Reviewed: Yes Family/Social History: No Known Family HX Smoking Status: Former Smoker Hx Alcohol Use: No Hx Substance Use: No Hx Substance Use Treatment: No Allergies/Home Meds Allergies/Adverse Reactions: Allergies shellfish derived Allergy (Verified 02/05/18 12:36) ANAPHYLAXIS Review of Systems - Review of Systems Constitutional: Normal Eyes: Normal ENT: Normal Respiratory: Normal Cardiovascular: Normal Gastrointestinal: Normal Genitourinary Male: Normal Musculoskeletal: Other (mild right knee pain) Skin: Normal Neurological: Headache, Dizziness Endocrine: Normal Hemo/Lymphatic: Normal Psychiatric: Normal Physical Exam Vital Signs Reviewed: Yes Vital Signs Temp Pulse Resp BP Pulse Ox 02/05/18 12:49 981 F H 78 18 129/95 H 100 02/05/18 12:32 99.1 F 82 16 130/56 L 100 Temperature: Afebrile Blood Pressure: Normal Pulse: Regular Respiratory Rate: Normal Appearance: Positive for: Well-Appearing, Non-Toxic, Uncomfortable, Other (alert /awake, GCS = 15, oriented x 3, resting in bed, mildly uncomfortable, NAD, cooperative) Pain Distress: None Mental Status: Positive for: Alert and Oriented X 3 - Systems Exam Head: Present: Atraumatic, Normocephalic, Other (no gross swelling/focal tenderness noted to scalp, no fluctuance noted, no lesions/lacerations noted). No: Tenderness, Contusion Pupils: Present: PERRL, Other (no nystagmus, no photophobia, sclera anicteric, visual field intact b/l) Extroacular Muscles: Present: EOMI Conjunctiva: Present: Normal Ears: Present: Normal Mouth: Present: Moist Mucous Membranes, Normal Teeth, Other (uvula/tongue are midline, no exudate/lesions, no drooling/stridor, intact dentitions) Pharnyx: Present: Normal Nose (External): Present: Atraumatic Nose (Internal): Present: Normal Inspection Neck: Present: Normal Range of Motion, Trachea Midline, Other (no step off, no nuchal rigidity). No: Meningeal Signs, MIDLINE TENDERNESS Respiratory/Chest: Present: Clear to Auscultation, Good Air Exchange, Other ( CTA b/l, no chest wall tenderness noted, no accessory muscle use noted). No: Respiratory Distress, Accessory Muscle Use Cardiovascular: Present: Regular Rate and Rhythm, Normal S1, S2. No: Murmurs Abdomen: Present: Normal Bowel Sounds, Other (well nourished male, no focal tenderness, no masses/rebound/guarding/rigidity, no arzate's sign, no mcburney' s point tenderness). No: Tenderness Back: Present: Normal Inspection. No: CVA Tenderness, Midline Tenderness Upper Extremity: Present: Normal Inspection, Normal ROM, NORMAL PULSES, Neurovascularly Intact, Capillary Refill < 2s Lower Extremity: Present: Normal Inspection, NORMAL PULSES, Normal ROM, Neurovascularly Intact, Other (+ ambulatory, neurovasc intact b/l, strength 5/5 grossly intact b/l, no gross deformities noted) Neurological: Present: GCS=15, CN II-XII Intact, Speech Normal, Other (no slurr speech, oriented x 3, GCS = 15, oriented x 3, no facial asymmetries) Skin: Present: Warm, Normal Color, Other (cap refill < 1sec, no abrasions/ lacerations, no petechiae, no rashes noted). No: Rashes Psychiatric: Present: Alert, Oriented x 3 Medical Decision Making ED Course and Treatment: 02/05/18 12:45 Impression: left sided head injury, right knee contusion, fall i have consider all the differential diagnosis regarding pt's chief medical complaints/clinical findings, including but are not limited to: likely concussion/and contusion A/P: likely concussion, likely contusion - observe - supportive care 02/05/18 13:22 pt is doing well pt is encouraged no contact sports x 1 week pt is made aware of his medical results pt is encouraged ice to left scalp/head and right knee for comfort pt will f/u as directed pt will be discharged home Re-evaluation Time: 13:22 Reassessment Condition: Improving,but remains with symptoms - Medication Orders Current Medication Orders: Discontinued Medications Ibuprofen (Motrin Tab) 600 mg PO STAT STA Stop: 02/05/18 12:50 Last Admin: 02/05/18 12:57 Dose: 600 mg Disposition/Present on Arrival - Present on Arrival Any Indicators Present on Arrival: No History of DVT/PE: No History of Uncontrolled Diabetes: No Urinary Catheter: No History Surgical Site Infection Following: None - Disposition Have Diagnosis and Disposition been Completed?: Yes Diagnosis: Concussion, Head injury, Knee contusion Disposition: HOME/ ROUTINE Disposition Time: 13:19 Patient Plan: Discharge Condition: STABLE Discharge Instructions (ExitCare): Concussion in Adults, Closed Head Injury, Contusion (DC) Print Language: GERMAN Additional Instructions: Make sure to see your doctor in 1-2 days DRINK PLENTY OF FLUIDS take your medications as prescribed ICE your knee/head 15min/hr over the next 1-2 days RETURN TO ED IF worse pain, cant breath, persistent vomiting, high fever >101- 102 for hours, altered behavior, slurr speech, facial changes, focal weakness ( arm/leg or both), unable to urinate, heavy/persistent bleeding, passing out, chest pain, or other medical emergencies Prescriptions: Ibuprofen [Motrin] 400 mg PO TID PRN #30 tab PRN Reason: Pain, Mild (1-3) Referrals: Florentino Arzate MD [Primary Care Provider] - Follow up with primary Forms: [facility] (Persian)
[2018-02-05 12:36] VITALS: BMI 25.0
[2018-02-05 12:39] VITALS: O2SAT 100
[2018-02-05 12:50] VITALS: BP 129/95; PULSE 78; RESP 18; TEMP 981
== END 2018-02-05 13:31 | disposition home or self-care (01) ==
LOC: ED 12:09
DX: S06.0X0A Concussion without loss of consciousness, initial encounter (principal); S80.01XA Contusion of right knee, initial encounter; W00.0XXA Fall on same level due to ice and snow, initial encounter; Y92.522 Railway station as the place of occurrence of the external cause

== ENCOUNTER 2018-07-04 07:31 | Emergency (ER) | payer MEDICAID ==
[2018-07-04 07:48] VITALS: BMI 28.7
[2018-07-04 08:10] VITALS: O2SAT 100
--- NOTE | 2018-07-04 08:27 | ED PDOC ---
Arrival/HPI - General Chief Complaint: Shortness Of Breath Time Seen by Provider: 07/04/18 08:12 Historian: Patient - History of Present Illness Narrative History of Present Illness (Text): 07/04/18 08:09 A 23 year old male, with no significant past medical history, presents to the emergency department complaining of intermittent shortness of breath and sharp left-side abdominal pain for 1 month. Patient reports having been seen in [place] for same symptoms 1 month ago and was told to have severe allergies. Patient was given prescription for inhaler and discharged home. States no relief from inhaler. Mentions he works in a [employer], which may flare up his shortness of breath, as well as when performing a lot of physical activity. Patient notes also experiencing chest pain as well. Patient denies any rhinorrhea, rashes, or any other complaints at this time. Also, patient mentions experiencing sore throat and wheezing 1-2 weeks ago. According to patient, during that time, he began hyperventilating while at work and had to sit down to catch his breath. PMD: Dr. Florentino Arzate Time/Duration: Other (1 month according to patient.) Symptom Onset: Sudden Symptom Course: Unchanged Past Medical History - Provider Review Nursing Documentation Reviewed: Yes - Past History Past History: No Previous - Infectious Disease Hx of Infectious Diseases: None - Reproductive Currently Lactating: No - Cardiac Hx Cardiac Disorders: No - Pulmonary Hx Respiratory Disorders: Yes Other/Comment: FLU - Neurological Hx Neurological Disorder: No - HEENT Hx HEENT Disorder: Yes Other/Comment: CLOGGED EAR - Renal Hx Renal Disorder: No - Endocrine/Metabolic Hx Endocrine Disorders: No - Hematological/Oncological Hx Blood Disorders: No - Integumentary Hx Dermatological Disorder: No - Musculoskeletal/Rheumatological Hx Musculoskeletal Disorders: No - Gastrointestinal Hx Gastrointestinal Disorders: No - Genitourinary/Gynecological Hx Genitourinary Disorders: No - Psychiatric Hx Psychophysiologic Disorder: Yes Hx Depression: Yes (NEW ONSET) Hx Substance Use: Yes - Anesthesia Hx Anesthesia: No Family/Social History - Physician Review Nursing Documentation Reviewed: Yes Family/Social History: No Known Family HX Smoking Status: Light Smoker < 10 Cigarettes Daily Hx Alcohol Use: Yes Frequency of alcohol use: Socially Hx Substance Use: Yes Substance used: marijuana Hx Substance Use Treatment: No Allergies/Home Meds Allergies/Adverse Reactions: Allergies shellfish derived Allergy (Verified 07/04/18 07:41) ANAPHYLAXIS Home Medications: Home Meds Medication Instructions Recorded Confirmed Albuterol Sulfate [Ventolin Hfa] 1 puff IH BID PRN 07/04/18 07/04/18 Review of Systems - Physician Review All systems were reviewed & negative as marked: Yes - Review of Systems ENT: Sinus Congestion. absent: Rhinorrhea Respiratory: SOB (intermittently) Cardiovascular: Chest Pain Gastrointestinal: Abdominal Pain (left-side region) Skin: absent: Rash Physical Exam - Physical Exam Narrative Physical Exam (Text): Gen: VS reviewed, alert, well developed, well nourished, nontoxic, mild distress. ENT: normal pharynx. Eye: EOMI, PERRL. Neck: no JVD, supple, no adenopathy. CV: regular rate, regular rhythm, no rubs, no murmur, no gallops, S1, S2, pulses equal and strong. Pulm: no distress, clear to auscultation, no wheeze, no rhonchi, breath sounds equal, no rales. Abd: soft, nontender, no guarding, no rebound, no rigidity, normal bowel sounds. Ext: no edema. Skin: good color, no rash, no cyanosis. Psych: responds appropriately to questions, normal affect. Neuro: oriented x 3, CN2-12 intact grossly, motor intact, sensation intact. Vital Signs Reviewed: Yes Vital Signs Temp Pulse Resp BP Pulse Ox 07/04/18 08:07 17 100 07/04/18 07:48 99.2 F 74 17 138/60 97 07/04/18 07:42 98.5 F 59 L 18 138/72 98 Temperature: Afebrile Blood Pressure: Normal Pulse: Regular Respiratory Rate: Normal Appearance: Positive for: Well-Appearing Pain Distress: None Mental Status: Positive for: Alert and Oriented X 3 Medical Decision Making ED Course and Treatment: 07/04/18 08:12 Impression: 23 year old male with intermittent shortness of breath and sharp left-side abdominal pain. No acute findings on physical exam. Plan: -- EKG -- Chest X-ray -- Labs -- Urinalysis -- Reassess and disposition Progress Notes: 07/04/18 09:38 patient seen for dyspnea on exertion, no current cp, no flank pain or irritative voiding symptoms to suggest renal colic. there is no rash on the left side of the chest to suggest shingles. workup unremarkable and patient remained stable throughout ED course. patient will make an appt to see pcp for appropriate follow up. patient understands and is agreeable to plan and will return for any new or worsening symptoms. 07/04/2018 09:29 Chest X-ray IMPRESSION: No active disease. Dictator: Castillo Gonzalez MD - Lab Interpretations Lab Results: 07/04/18 08:15 07/04/18 08:15 Lab Results 07/04/18 08:15: Urine Color Yellow, Urine Appearance Sl cloudy, Urine pH 6.5, Ur Specific [place] 1.025, Urine Protein Trace H, Urine Glucose (UA) Negative, Urine Ketones Negative, Urine Blood Large H, Urine Nitrate Negative, Urine Bilirubin Negative, Urine Urobilinogen 0.2, Ur Leukocyte Esterase Negative, Urine RBC Tntc, Urine WBC 1 - 3, Ur Epithelial Cells None, Urine Bacteria Mod 07/04/18 08:15: Sodium 144, Potassium 4.1, Chloride 105, Carbon Dioxide 28, Anion Gap 15, BUN 13, Creatinine 0.8, Est GFR ( Amer) > 60, Est GFR (Non- Af Amer) > 60, Random Glucose 94, Calcium 9.3 07/04/18 08:15: WBC 5.2 D, RBC 5.42, Hgb 13.5 L, Hct 42.3, MCV 78.0 L, MCH 24.9 L, MCHC 31.9, RDW 14.2, Plt Count 222, MPV 9.1, Gran % 44.2 L, Lymph % ( Auto) 41.5 H, [place] % (Auto) 11.0 H, Eos % (Auto) 3.1, Baso % (Auto) 0.2, Gran # 2.30, Lymph # (Auto) 2.2, [place] # (Auto) 0.6, Eos # (Auto) 0.2, Baso # (Auto) 0.01 I have reviewed the lab results: Yes - RAD Interpretation Radiology Orders: 07/04/18 08:12 CXR [CHEST TWO VIEWS (PA/LAT)] [RAD] Stat - EKG Interpretation EKG Interpretation (Text): 07/04/18 09:38 0824: sinus ab at 58 bpm, nml qrsa, nml axis, lvh, no acute sttw abn Interpreted by ED Physician: Yes - Scribe Statement The provider has reviewed the documentation as recorded by the Guanakito Payne Provider Guan[place]ito Attestation: All medical record entries made by the Reynaibe were at my direction and personally dictated by me. I have reviewed the chart and agree that the record accurately reflects my personal performance of the history, physical exam, medical decision making, and the department course for this patient. I have also personally directed, reviewed, and agree with the discharge instructions and disposition. Disposition/Present on Arrival - Present on Arrival Any Indicators Present on Arrival: No History of DVT/PE: No History of Uncontrolled Diabetes: No Urinary Catheter: No History of Decub. Ulcer: No History Surgical Site Infection Following: None - Disposition Have Diagnosis and Disposition been Completed?: Yes Diagnosis: Dyspnea Disposition: HOME/ ROUTINE Disposition Time: 09:41 Patient Plan: Discharge Patient Problems: Current Active Problems Problem Status Onset Dyspnea Acute Condition: STABLE Print Language: TURKMEN Additional Instructions: SUSHILA BERG, thank you for letting us take care of you today. Your provider was Dr. Avtar Dove and you were treated for shortness of breath. The emergency medical care you received today was directed at your acute symptoms. If you were prescribed any medication, please fill it and take as directed. It may take several days for your symptoms to resolve. Return to the Emergency Department if your symptoms worsen, do not improve, or if you have any other problems. Please contact your doctor or call one of the physicians/clinics you have been referred to that are listed on the Patient Visit Information form that is included in your discharge packet. Bring any paperwork you were given at discharge with you along with any medications you are taking to your follow up visit. Our treatment cannot replace ongoing medical care by a primary care provider outside of the emergency department. Thank you for allowing the [facility] team to be part of your care today. If you had an X-Ray or CT scan: A Radiologist will review the ED reading if any change in treatment is needed we will contact you. If you had a blood, urine, or wound culture: It will take several days for the results, if any change in treatment is needed we will contact you. If you had an STI test: It will take 48 hours for the results. Please call after 1 week if you have not heard back. Referrals: [facility] [Outside] - Follow up with primary Gela Wilson MD [Medical Doctor] - Follow up with primary Forms: [facility] (Bulgarian), WORK NOTE
[2018-07-04 08:43] LABS: BASO # 0.01 K/mm3 (0.0-2.0); BASO % 0.2 % (0.0-3.0); EOS # 0.2 (0.0-0.7); EOS % 3.1 % (1.5-5.0); GRAN # 2.3 (1.4-6.5); GRAN % 44.2 % (50.0-68.0); HEMOGLOBIN 13.5 g/dL (14.0-18.0); LYMPH # 2.2 (1.2-3.4); LYMPH % 41.5 % (22.0-35.0); MEAN CORPUSCULAR HEMOGLOBIN 24.9 pg (25.0-35.0); MEAN CORPUSCULAR HGB CONC 31.9 g/dl (31.0-37.0); MEAN PLATELET VOLUME 9.1 fl (7.0-11.0); MONO # 0.6 (0.1-0.6); PH,URINE 6.5 (4.7-8.0); RBC 5.42 10^6/uL (3.5-6.1); RED CELL DISTRIBUTION WIDTH 14.2 % (11.5-14.5); URINE BILIRUBIN NEGATIVE (NEGATIVE); URINE BLOOD LARGE (NEGATIVE); URINE GLUCOSE (UA) NEGATIVE (NEGATIVE); URINE LEUKOCYTE ESTERASE NEGATIVE Leu/uL (NEGATIVE); URINE PROTEIN TRACE mg/dL (<30 mg/dL); URINE UROBILINOGEN 0.2 E.U./dL (<1 E.U./dL); WHITE BLOOD COUNT 5.2 10^3/ul (4.5-11.0)
[2018-07-04 08:44] LABS: URINE APPEARANCE SL CLOUDY (CLEAR); URINE COLOR YELLOW (YELLOW)
[2018-07-04 08:46] LABS: URINE BACTERIA MOD (NEG); URINE RBC TNTC /hpf (0-2)
[2018-07-04 08:49] LABS: BLOOD UREA NITROGEN 13 mg/dL (7-21); CALCIUM 9.3 mg/dL (8.4-10.5); GFR NON-AFRICAN AMERICAN > 60
--- NOTE | 2018-07-04 09:31 | RAD ---
Date of service: 07/04/2018 HISTORY: dyspnea COMPARISON: No prior. TECHNIQUE: Chest PA and lateral FINDINGS: LUNGS: No active pulmonary disease. PLEURA: No significant pleural effusion identified. No pneumothorax apparent. CARDIOVASCULAR: Normal. OSSEOUS STRUCTURES: No significant abnormalities. VISUALIZED UPPER ABDOMEN: Normal. OTHER FINDINGS: None. IMPRESSION: No active disease.
[2018-07-04 09:59] VITALS: BP 138/52; PULSE 58; RESP 18
[2018-07-04 10:06] VITALS: TEMP 99
--- NOTE | 2018-07-04 19:21 | CARD ---
APPROVED REPORT Date of service: 07/04/2018 EKG Measurement Heart [id number] <Conclusion> Sinus bradycardia Otherwise normal ECG
== END 2018-07-04 10:06 | disposition home or self-care (01) ==
LOC: ED 07:31
DX: R06.00 Dyspnea, unspecified (principal); F17.210 Nicotine dependence, cigarettes, uncomplicated

== ENCOUNTER 2018-07-30 10:02 | Emergency (ER) | payer MEDICAID ==
[2018-07-30 10:03] VITALS: BMI 25.0
[2018-07-30 10:31] VITALS: RESP 18; TEMP 98.4
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
--- NOTE | 2018-07-30 11:53 | CT ---
Date of service: 07/30/2018 PROCEDURE: CT Abdomen and Pelvis without intravenous contrast HISTORY: left flank pain COMPARISON: None. TECHNIQUE: Without contrast.. Contrast dose: Radiation dose: Total exam DLP = 524 mGy-cm. This CT exam was performed using one or more of the following dose reduction techniques: Automated exposure control, adjustment of the mA and/or kV according to patient size, and/or use of iterative reconstruction technique. FINDINGS: LOWER THORAX: Unremarkable. LIVER: Unremarkable. No gross lesion or ductal dilatation. GALLBLADDER AND BILE DUCTS: Unremarkable. PANCREAS: Unremarkable. No gross lesion or ductal dilatation. SPLEEN: Unremarkable. ADRENALS: Unremarkable. No mass. KIDNEYS AND URETERS: Unremarkable. No hydronephrosis. No solid mass. 3 mm nonobstructing stone in the mid left kidney VASCULATURE: Unremarkable. No aortic aneurysm. BOWEL: Unremarkable. No obstruction. No gross mural thickening. APPENDIX: Unremarkable. Normal appendix. PERITONEUM: Unremarkable. No free fluid. No free air. LYMPH NODES: Unremarkable. No enlarged lymph nodes. BLADDER: Unremarkable. REPRODUCTIVE: Unremarkable. BONES: No acute fracture. OTHER FINDINGS: None. IMPRESSION: No acute intra-abdominal findings
[2018-07-30 12:18] VITALS: BP 124/75; PULSE 78; O2SAT 98
== END 2018-07-30 12:17 | disposition home or self-care (01) ==
LOC: ED 10:02
DX: N23 Unspecified renal colic (principal)
CPT/HCPCS: 74176; 96372; 99284; J1885

== ENCOUNTER 2018-10-09 05:53 | Inpatient (IN) | payer MEDICAID ==
[2018-10-09 06:08] VITALS: BMI 27.3
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
[2018-10-09 06:47] LABS: ACETAMINOPHEN < 10.0 ug/ml (10.0-20.0); SALICYLATE < 1 mg/dL (2.0-20.0)
[2018-10-09 06:49] LABS: ALB/GLOB RATIO 1.4 (1.1-1.8); ALBUMIN 4.7 g/dL (3.0-4.8); ALT/SGPT 38 U/L (7-56); AST/SGOT 31 U/L (17-59); BLOOD UREA NITROGEN 16 mg/dL (7-21); CALCIUM 9.4 mg/dL (8.4-10.5); GFR NON-AFRICAN AMERICAN > 60
[2018-10-09 06:51] LABS: PH,URINE 6.5 (4.7-8.0); URINE BILIRUBIN NEGATIVE (NEGATIVE); URINE BLOOD NEGATIVE (NEGATIVE); URINE GLUCOSE (UA) NEGATIVE (NEGATIVE); URINE LEUKOCYTE ESTERASE NEGATIVE Leu/uL (NEGATIVE); URINE PROTEIN NEGATIVE mg/dL (<30 mg/dL)
[2018-10-09 06:55] LABS: URINE APPEARANCE CLEAR (CLEAR); URINE COLOR YELLOW (YELLOW)
[2018-10-09 06:57] LABS: BASO # 0.01 K/mm3 (0.0-2.0); BASO % 0.2 % (0.0-3.0); EOS # 0.1 (0.0-0.7); EOS % 2.9 % (1.5-5.0); GRAN # 1.95 (1.4-6.5); GRAN % 43.2 % (50.0-68.0); HEMOGLOBIN 14.5 g/dL (14.0-18.0); LYMPH % 43.9 % (22.0-35.0); MEAN CELL VOLUME 77.8 fl (80.0-105.0); MEAN CORPUSCULAR HEMOGLOBIN 24.8 pg (25.0-35.0); MEAN CORPUSCULAR HGB CONC 31.9 g/dl (31.0-37.0); MEAN PLATELET VOLUME 8.4 fl (7.0-11.0); MONO # 0.4 (0.1-0.6); MONO % 9.8 % (1.0-6.0); RBC 5.85 10^6/uL (3.5-6.1); RED CELL DISTRIBUTION WIDTH 14.4 % (11.5-14.5); WHITE BLOOD COUNT 4.5 10^3/uL (4.5-11.0)
[2018-10-09 07:11] LABS: BARBITURATES, UR NEGATIVE (NEGATIVE); BENZODIAZEPINES, UR NEGATIVE (NEGATIVE); OPIATES, UR NEGATIVE (NEGATIVE); PHENCYCLIDINE, UR NEGATIVE (NEGATIVE)
--- NOTE | 2018-10-09 07:38 | ED PDOC ---
Physical Exam Vital Signs Temp Pulse Resp BP Pulse Ox 10/09/18 06:38 98.9 F 69 18 140/69 99 Medical Decision Making ED Course and Treatment: 10/09/18 07:36 Signed out to me, by Dr. Cherry, at change of shift pending labs. Labs are unremarkable, chest X-ray shows no acute disease. Pes worker was notified. - Lab Interpretations Lab Results: 10/09/18 06:28 10/09/18 06:28 Lab Results 10/09/18 06:35: Urine Color Yellow, Urine Appearance Clear, Urine pH 6.5, Ur Specific [place] 1.025, Urine Protein Negative, Urine Glucose (UA) Negative, [place] Ketones Negative, Urine Blood Negative, Urine Nitrate Negative, Urine Bilirubin Negative, Urine Urobilinogen 1.0 H, Ur Leukocyte Esterase Negative 10/09/18 06:35: Urine Opiates Screen Negative, Urine Methadone Screen Negative, Ur Barbiturates Screen Negative, Ur Phencyclidine Scrn Negative, Ur Amphetamines Screen Negative, U Benzodiazepines Scrn Negative, U Oth Cocaine Metabols Negative, U Cannabinoids Screen Positive H 10/09/18 06:28: Alcohol, Quantitative < 10 10/09/18 06:28: Sodium 141, Potassium 4.1, Chloride 105, Carbon Dioxide 25, Anion Gap 15, BUN 16, Creatinine 0.8, Est GFR ( Amer) > 60, Est GFR (Non- Af Amer) > 60, Random Glucose 91, Calcium 9.4, Total Bilirubin 0.9, AST 31, ALT 38, Alkaline Phosphatase 73, Total Protein 8.1, Albumin 4.7, Globulin 3.4, Albumin/Globulin Ratio 1.4 10/09/18 06:28: WBC 4.5, RBC 5.85, Hgb 14.5, Hct 45.5, MCV 77.8 L, MCH 24.8 L, MCHC 31.9, RDW 14.4, Plt Count 219, MPV 8.4, Gran % 43.2 L, Lymph % (Auto) 43.9 H, [place] % (Auto) 9.8 H, Eos % (Auto) 2.9, Baso % (Auto) 0.2, Gran # 1.95, Lymph # (Auto) 2.0, [place] # (Auto) 0.4, Eos # (Auto) 0.1, Baso # (Auto) 0.01 10/09/18 06:28: Salicylates < 1 L, Acetaminophen < 10.0 L I have reviewed the lab results: Yes - RAD Interpretation Radiology Orders: 10/09/18 06:23 CHEST PORTABLE [RAD] Stat Disposition/Present on Arrival - Present on Arrival Any Indicators Present on Arrival: No History of DVT/PE: No History of Uncontrolled Diabetes: No Urinary Catheter: No History of Decub. Ulcer: No History Surgical Site Infection Following: None - Disposition Have Diagnosis and Disposition been Completed?: Yes Diagnosis: Depression, Suicidal thoughts Disposition: HOSPITALIZED Disposition Time: 07:36 Patient Plan: Admission Patient Problems: Current Active Problems Problem Status Onset Depression Acute Suicidal thoughts Acute Condition: GUARDED Forms: [employer] (Azerbaijani)
--- NOTE | 2018-10-09 09:27 | RAD ---
Date of service: 10/09/2018 HISTORY: chest tightness COMPARISON: 07/04/2018 FINDINGS: LUNGS: No active pulmonary disease. PLEURA: No significant pleural effusion identified, no pneumothorax apparent. CARDIOVASCULAR: No aortic atherosclerotic calcification present. Normal cardiac size. No pulmonary vascular congestion. OSSEOUS STRUCTURES: No significant abnormalities. VISUALIZED UPPER ABDOMEN: Normal. OTHER FINDINGS: None. IMPRESSION: No active disease.
[2018-10-09] MEDS ORDERED: Albuterol HFA 90 mcg/actuation (8 g) IH PRN (10:59)
--- NOTE | 2018-10-09 11:15 | CARD ---
APPROVED REPORT Date of service: 10/09/2018 EKG Measurement Heart [id number] <Conclusion> Normal sinus rhythm Normal ECG
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
[2018-10-09] MEDS: Fluticasone-Salmeterol 250-50mcg Diskus IH SCH (18:04)
--- NOTE | 2018-10-09 18:11 | PCM.BM ---
<Scottie Montes - Last Filed: 10/09/18 18:07> Treatment Plan Problems - Problems identified on initial assessmt Ineffective Coping Date Initiated: 10/09/18 Time Initiated: 10:00 Assessment reference: NA Status: Active Priority: 1 Hopelessness/Helplessness Date Initiated: 10/09/18 Time Initiated: 10:00 Assessment reference: NA Status: Active Priority: 2 Feelings of Worthlessness Date Initiated: 10/09/18 Time Initiated: 10:00 Assessment reference: NA Status: Active Priority: 3 Treatment assets and liabiliti Patient Assests: cooperative, insightful, self-reliant, negotiates basic needs, cognitively intact, good interpersonal skills Patient Liabilities: financial problems, poor support system, relationship conflicts, substance abuse, medical problems - Milieu Protocol Maintain good personal hygiene: daily Encourage regular showers, every shift Remind patient to perform daily oral care, every shift Assist patient to perform ADL's Maintain personal safety: every shift Educate patient to report safety concerns to staff, every shift Monitor environment for contraband/sharps Medication safety: Monitor for expected outcome, potential side effects: every s hift, Assess barriers to learning: every shift, Assess readiness for medication education: every shift Milieu Narrative: Milieu/structure/supportive therapy Medical consult for asthma SW consultation for discharge plan and social issues Med management Prozac 10 mg for depression and anxiety, will titrate accordingly Seroquel at the nighttime for voices and mood stabilization Vistaril as needed for anxiety Family involvement Follow up on labs Will monitor closely Pt was educated about risk/benefits and alternatives of medications, coping strategies (safety plan, suicide prevention), relapse prevention, importance of follow up with psychiatrist and therapist, stay away from drugs/alcohol/smoking Family Contact Family involvement: Family/SO is involved Family contact: Patient agrees to contact - Goals for Treatment Patient goals for treatment: Recovery from alcohol and housing Discharge/Continuing Care - Education Needs Education Needs: Patient Medication, Patient Diagnosis/Disease Process, Patient Coping Skills, Patient Anger Management skills, Patient Placement options, Patient Community resources, Patient Activities of Daily Living, Patient Pain, Patient Nutrition, Patient Uses of Medical Equipment, Patient Health Practices/Safety, Patient Personal Hygiene/Grooming, Patient Aftercare Safety Plan - Discharge Discharge Criteria: Tolerates medication w/o severe side effects, Free of Homicidal thoughts - Treatment Team Participation Patient/Family/SO Statement: Milieu/structure/supportive therapy Medical consult for asthma SW consultation for discharge plan and social issues Med management Prozac 10 mg for depression and anxiety, will titrate accordingly Seroquel at the nighttime for voices and mood stabilization Vistaril as needed for anxiety Family involvement Follow up on labs Will monitor closely Pt was educated about risk/benefits and alternatives of medications, coping strategies (safety plan, suicide prevention), relapse prevention, importance of follow up with psychiatrist and therapist, stay away from drugs/alcohol/smoking <Gissel Becerra - Last Filed: 10/11/18 16:10> Family Contact Family involvement: Famliy/SO not involved
[2018-10-10] MEDS: Fluticasone-Salmeterol 250-50mcg Diskus IH SCH ×2 (06:36→17:01)
[2018-10-10 07:10] LABS: GLUCOSE,FASTING 94 mg/dL (65-110); HDL CHOLESTEROL 59 mg/dL (29-60)
[2018-10-10 07:20] LABS: LDL CHOLESTEROL 69 mg/dL (0-129)
--- NOTE | 2018-10-10 12:28 | CON ---
DATE: 10/10/2018 HISTORY OF PRESENT ILLNESS: I was called to the psychiatric floor to do a consult on him. He is a 23-year-old white male who presents with major depression to the emergency room. He states he has been dealing with this for 2-3 years to me, but he feels now it is a time to really try and mange it. He just lost his job, also he wants to start college. He was never placed on antidepressants or anxiety medications before and just feels down. He did make a suicide attempt on Thanksgiving, drinking alcohol and swallowing multiple allergy pills. PAST MEDICAL HISTORY: Major depression, asthma, seasonal allergies. He has had clogged ears in the past. He has had kidney stones, none now. New onset of depression, which has been going on for 2-3 years. PAST SURGICAL HISTORY: He denies any surgery. ALLERGIES: NO KNOWN DRUG ALLERGIES. HE HAS ALLERGIES TO POLLEN AND SHELLFISH. MEDICATIONS: He takes Phenytoin and albuterol. FAMILY HISTORY: His mom has a history of bipolar disorder and schizophrenia. Dad, unknown. SOCIAL HISTORY: He smokes cigarettes. He does drink alcohol. He did have a suicide attempt. He does smoke marijuana. REVIEW OF SYSTEMS: No acute vision or hearing changes. No sore throat. No chest pain or palpitation. No shortness of breath, or cough, or wheezing at this time. He is breathing fine. No nausea, vomiting, constipation, or diarrhea. No problems urinating. No back pain, neck pain. Skin for what I could tell, is intact. No ulcers. He has anxiety, has some depression, and has some suicidal thoughts. PHYSICAL EXAMINATION: GENERAL: He is comfortable at this time, no apparent anxiousness or depression while talking to him. VITAL SIGNS: He has a 98.9 temperature, 69 pulse, 18 respiratory rate, 140/69 blood pressure, and 99% O2 sat. HEENT: Head is atraumatic and normocephalic. Extraocular muscles are intact. Pupils are reactive to light and accommodation. Throat is moist. NECK: Supple. HEART: Regular rate. Normal S1, S2. LUNGS: Clear to auscultation bilaterally. No wheezes. No rhonchi. No rales. ABDOMEN: Soft, nontender. Positive bowel sounds. No guarding. No rebound. No CVA tenderness. EXTREMITIES: Have no edema. His GCS is 15. NEUROLOGIC: Cranial nerves II through XII grossly intact. Normal motor function. He can stick out his tongue midline. He can close his eyes tight. He can raise his arms over his head. He can follow my finger with an H pattern with his eyes. SKIN: Warm and dry. No apparent ulcers appreciated. LYMPHS: Thyroid midline. No palpable appreciable lymphadenopathy. LABORATORY DATA: He had tests done. The chest x-ray showed no acute disease. He has a urine test, which is positive for marijuana. He has a urine, which is clean for infection. Sodium 141, potassium 4.1, BUN 16, creatinine 0.8, GFR is greater than 60. Sugar is 91. Calcium is 9.4. Total bili is 0.9, AST is 31, ALT is 38, alk phos 73, total protein is 8.1, albumin is 4.7, globulin is 3.4. Triglycerides are 67, cholesterol is 127, LDL is 69, HDL 69. TSH is 1.87. He has a 4.5 white count, 14.5 hemoglobin, 45.5 hematocrit, with 298 platelets. ASSESSMENT AND PLAN: We will check his labs tomorrow. I encouraged him to participate in group and take the medicine as per Psychiatry. He had got Advair, Ativan, Geodon, Prozac, Seroquel, Ventolin, and Vistaril. We will continue to follow him. He is here for major depression, suicidal ideation, history of asthma. Thank you very much. We will check his labs tomorrow. Ector Martin DO
--- NOTE | 2018-10-10 15:00 | PCM.PYCHPN ---
Psychiatric Progress Note - Psychiatric Progress Note Patient seen today, length of contact: 30 minutes Patient Chief Complaint: "I slept well, thank you" Problems Identified/Issues Discussed: Suicide/ homicide prevention, past psychiatric h/o, current psychiatric symptoms, medical problems, risk/benefits and alternatives of medications, medications compliance, coping strategies, substance abuse h/o, relapse prevention, importance of follow up with psychiatrist and therapist, discharge plan. Medical Problems: patient has history of asthma Diagnostic Results: 10/09/18 06:28 10/09/18 06:28 Lab Results 10/10/18 06:45: TSH 3rd Generation 1.87 10/10/18 06:45: Fasting Glucose 94, Triglycerides 65, Cholesterol 127 L, LDL Cholesterol Direct 69, HDL Cholesterol 59 10/09/18 06:35: Urine Color Yellow, Urine Appearance Clear, Urine pH 6.5, Ur Specific [place] 1.025, Urine Protein Negative, Urine Glucose (UA) Negative, Urine Ketones Negative, Urine Blood Negative, Urine Nitrate Negative, Urine Bilirubin Negative, Urine Urobilinogen 1.0 H, Ur Leukocyte Esterase Negative 10/09/18 06:35: Urine Opiates Screen Negative, Urine Methadone Screen Negative, Ur Barbiturates Screen Negative, Ur Phencyclidine Scrn Negative, Ur Amphetamines Screen Negative, U Benzodiazepines Scrn Negative, U Oth Cocaine Metabols Negative, U Cannabinoids Screen Positive H 10/09/18 06:28: Alcohol, Quantitative < 10 10/09/18 06:28: Sodium 141, Potassium 4.1, Chloride 105, Carbon Dioxide 25, Anion Gap 15, BUN 16, Creatinine 0.8, Est GFR ( Amer) > 60, Est GFR (Non- Af Amer) > 60, Random Glucose 91, Calcium 9.4, Total Bilirubin 0.9, AST 31, ALT 38, Alkaline Phosphatase 73, Total Protein 8.1, Albumin 4.7, Globulin 3.4, Albumin/Globulin Ratio 1.4 10/09/18 06:28: WBC 4.5, RBC 5.85, Hgb 14.5, Hct 45.5, MCV 77.8 L, MCH 24.8 L, MCHC 31.9, RDW 14.4, Plt Count 219, MPV 8.4, Gran % 43.2 L, Lymph % (Auto) 43.9 H, [place] % (Auto) 9.8 H, Eos % (Auto) 2.9, Baso % (Auto) 0.2, Gran # 1.95, Lymph # (Auto) 2.0, [place] # (Auto) 0.4, Eos # (Auto) 0.1, Baso # (Auto) 0.01 10/09/18 06:28: Salicylates < 1 L, Acetaminophen < 10.0 L Vital Signs Temp Pulse Pulse Resp BP Pulse Ox 10/10/18 07:20 98.6 F 68 20 127/80 10/09/18 15:39 75 137/74 10/09/18 10:00 99.1 F 74 74 17 131/69 10/09/18 09:36 98.3 F 65 18 98 10/09/18 09:22 98.3 F 64 17 117/72 98 10/09/18 06:38 98.9 F 69 18 140/69 99 DSM 5 Symptoms Update: shortly patient is 23 year old male, not known previous psychiatric history, self reported history of depression and anxiety, denied history of admission to the psychiatric inpatient unit but reported 3 suicidal attempts in the past most recent was at [facility] when patient overdosed on medications and alcohol, patient recently broke up with his boyfriend, lost his job, no support from his family, patient currently is homeless. Patient came to the hospital looking for help for depression, inability to function, losing weight, patient also reported to have suicidal ideation with a plan to either overdose on medication or jump off the roof, patient requires medication management, observation and stabilization. prior to come to the hospital patient broke the windows in his boyfriend apartment, as superficial scratches in his hands, no needed sutures. patient was seen today at the treatment team meeting room, patient presented with good personal hygiene, patient reported that he had good night sleep, patient reported that he tolerates medications well, patient did not express any concerns or complaints about any side effects. Patient was observed at that groups, socializing with others. Patient reported that he still feels depressed and hopeless, wants to meet with social media developer about his social situation and homelessness. as per staff patient is calm and corporative, no agitation or aggression. Impression: DSM 5 Diagnosis: mdd, severe with psychosis PTSD r/o adjustment disorder with depressed and anxious mood Medication Change: Yes (started 10/09/2018) Consults ordered or reviewed: medical consult appreciated Mental Status Examination - Cognitive Function Orientation: Person, Place, Situation Memory: Intact Attention: Poor Concentration: Poor Association: Loose Fund of Knowledge: WNL - Mood Mood: Depressed, Anxious - Affect Affect: Constricted, Flat - Formal Thought Process Formal Thought Process: Hallucinations - Suicidal Ideation Suicidal Ideation: No - Homicidal Ideation Homicidal Ideation: No Goal/Treatment Plan - Goal/Treatment Plan Need for Continued Stay: Remain at risks for inpatient hospitalization, Severe depression anxiety, Discharge may exacerbated symptoms, Severe functional impairment Progress Toward Problem(s) and Goals/Treatment Plan: Milieu/structure/supportive therapy Medical consult for asthma SW consultation for discharge plan and social issues Med management Prozac 10 mg for depression and anxiety, will titrate accordingly Seroquel at the nighttime for voices and mood stabilization Vistaril as needed for anxiety Family involvement Follow up on labs Will monitor closely Pt was educated about risk/benefits and alternatives of medications, coping strategies (safety plan, suicide prevention), relapse prevention, importance of follow up with psychiatrist and therapist, stay away from drugs/alcohol/smoking Estimated Date of D/C: 10/14/18
[2018-10-11] MEDS: Fluticasone-Salmeterol 250-50mcg Diskus IH SCH ×2 (05:30→17:38)
[2018-10-11 07:38] LABS: HEMOGLOBIN 14.2 g/dL (14.0-18.0); MEAN CELL VOLUME 77.4 fl (80.0-105.0); MEAN CORPUSCULAR HEMOGLOBIN 24.5 pg (25.0-35.0); MEAN CORPUSCULAR HGB CONC 31.7 g/dl (31.0-37.0); MEAN PLATELET VOLUME 8.7 fl (7.0-11.0); RBC 5.79 10^6/uL (3.5-6.1); RED CELL DISTRIBUTION WIDTH 14.3 % (11.5-14.5); WHITE BLOOD COUNT 5.1 10^3/uL (4.5-11.0)
[2018-10-11 07:54] LABS: ALB/GLOB RATIO 1.4 (1.1-1.8); ALBUMIN 4.6 g/dL (3.0-4.8); ALT/SGPT 31 U/L (7-56); AST/SGOT 25 U/L (17-59); BLOOD UREA NITROGEN 15 mg/dL (7-21); CALCIUM 9.4 mg/dL (8.4-10.5); GFR NON-AFRICAN AMERICAN > 60
--- NOTE | 2018-10-11 09:21 | PN ---
DATE: 10/11/2018 SUBJECTIVE: I saw Mr. Mario Fuentes on the psychiatric floor. He is doing much better. He is eating better, smiling, better spirits. No more depression feelings. He is on Advair, Ativan, Geodon, Prozac, Seroquel, Singulair, Ventolin and Vistaril, so is also breathing well. PHYSICAL EXAMINATION: VITAL SIGNS: He has a 98.3 temperature, 63 pulse, 124/67 blood pressure and 20 respiratory rate. HEENT: Head is atraumatic and normocephalic. HEART: Regular rate. LUNGS: Clear to auscultation. ABDOMEN: Soft. EXTREMITIES: No edema. LABORATORY DATA: He has a 5.1 white count, 14.2 hemoglobin, 44.8 hematocrit with 200 platelets. He has 139 sodium, potassium 4.4, BUN 15, creatinine 0.9, GFR is greater than 60, sugar is 94, calcium is 9.4, total bili is 0.7, AST is 25, ALT 31, alk phos 66, and total protein 7.8. TSH is 1.87. Cholesterol is 127. Urine was clean. Toxicology was positive for marijuana. RPR is nonreactive. He did very well and he is going to continue to do very well. He is motivated now. He wants go back to school, I like that. He is on same medications and I encouraged him to participate in groups, follow psychiatric plans, I think he is doing quite well. Mario Fuentes, who had some major depression, marijuana abuse and asthma. Ector Martin DO
--- NOTE | 2018-10-11 15:03 | PCM.PYCHPN ---
Psychiatric Progress Note - Psychiatric Progress Note Patient seen today, length of contact: 30 minutes Patient Chief Complaint: "I am feeling safe in here" Problems Identified/Issues Discussed: Suicide/ homicide prevention, past psychiatric h/o, current psychiatric symptoms, medical problems, risk/benefits and alternatives of medications, medications compliance, coping strategies, substance abuse h/o, relapse prevention, importance of follow up with psychiatrist and therapist, discharge plan. Medical Problems: patient has history of asthma Diagnostic Results: 10/09/18 06:28 10/09/18 06:28 Lab Results 10/10/18 06:45: TSH 3rd Generation 1.87 10/10/18 06:45: Fasting Glucose 94, Triglycerides 65, Cholesterol 127 L, LDL Cholesterol Direct 69, HDL Cholesterol 59 10/09/18 06:35: Urine Color Yellow, Urine Appearance Clear, Urine pH 6.5, Ur Specific [place] 1.025, Urine Protein Negative, Urine Glucose (UA) Negative, Urine Ketones Negative, Urine Blood Negative, Urine Nitrate Negative, Urine Bilirubin Negative, Urine Urobilinogen 1.0 H, Ur Leukocyte Esterase Negative 10/09/18 06:35: Urine Opiates Screen Negative, Urine Methadone Screen Negative, Ur Barbiturates Screen Negative, Ur Phencyclidine Scrn Negative, Ur Amphetamines Screen Negative, U Benzodiazepines Scrn Negative, U Oth Cocaine Metabols Negative, U Cannabinoids Screen Positive H 10/09/18 06:28: Alcohol, Quantitative < 10 10/09/18 06:28: Sodium 141, Potassium 4.1, Chloride 105, Carbon Dioxide 25, Anion Gap 15, BUN 16, Creatinine 0.8, Est GFR ( Amer) > 60, Est GFR (Non- Af Amer) > 60, Random Glucose 91, Calcium 9.4, Total Bilirubin 0.9, AST 31, ALT 38, Alkaline Phosphatase 73, Total Protein 8.1, Albumin 4.7, Globulin 3.4, Albumin/Globulin Ratio 1.4 10/09/18 06:28: WBC 4.5, RBC 5.85, Hgb 14.5, Hct 45.5, MCV 77.8 L, MCH 24.8 L, MCHC 31.9, RDW 14.4, Plt Count 219, MPV 8.4, Gran % 43.2 L, Lymph % (Auto) 43.9 H, [place] % (Auto) 9.8 H, Eos % (Auto) 2.9, Baso % (Auto) 0.2, Gran # 1.95, Lymph # (Auto) 2.0, [place] # (Auto) 0.4, Eos # (Auto) 0.1, Baso # (Auto) 0.01 10/09/18 06:28: Salicylates < 1 L, Acetaminophen < 10.0 L Vital Signs Temp Pulse Pulse Resp BP Pulse Ox 10/10/18 07:20 98.6 F 68 20 127/80 10/09/18 15:39 75 137/74 10/09/18 10:00 99.1 F 74 74 17 131/69 10/09/18 09:36 98.3 F 65 18 98 10/09/18 09:22 98.3 F 64 17 117/72 98 10/09/18 06:38 98.9 F 69 18 140/69 99 DSM 5 Symptoms Update: shortly patient is 23 year old male, not known previous psychiatric history, self reported history of depression and anxiety, denied history of admission to the psychiatric inpatient unit but reported 3 suicidal attempts in the past most recent was at [facility] when patient overdosed on medications and alcohol, patient recently broke up with his boyfriend, lost his job, no support from his family, patient currently is homeless. Patient came to the hospital looking for help for depression, inability to function, losing weight, patient also reported to have suicidal ideation with a plan to either overdose on medication or jump off the roof, patient requires medication management, observation and stabilization. prior to come to the hospital patient broke the windows in his boyfriend apartment, as superficial scratches in his hands, no needed sutures. patient was seen today at the treatment team meeting room, patient presented with good personal hygiene, patient reported that he had good night sleep, patient reported that he tolerates medications well, patient did not express any concerns or complaints about any side effects. pt reported transient feeling of hopelessness and reported to feel "sad" after his boyfriend visited him in the hospital on 10/10/18. pt contracted for safety. Patient was observed at that groups, socializing with others. pt met with social staff worker about his social situation and homelessness. as per staff patient is calm and corporative, no agitation or aggression. Impression: DSM 5 Diagnosis: mdd, severe with psychosis PTSD r/o adjustment disorder with depressed and anxious mood Medication Change: Yes (prozac increased) Medical Record Reviewed: Yes Mental Status Examination - Cognitive Function Orientation: Person, Place, Situation Memory: Intact Attention: Poor (some improvement) Concentration: Poor (some improvement) Association: Loose (some improvement) Fund of Knowledge: WNL - Mood Mood: Depressed ("I feel safe in here"), Anxious - Affect Affect: Constricted, Flat - Formal Thought Process Formal Thought Process: Hallucinations (denied today) - Suicidal Ideation Suicidal Ideation: No - Homicidal Ideation Homicidal Ideation: No Goal/Treatment Plan - Goal/Treatment Plan Need for Continued Stay: Remain at risks for inpatient hospitalization, Severe depression anxiety, Discharge may exacerbated symptoms, Severe functional impairment Progress Toward Problem(s) and Goals/Treatment Plan: Milieu/structure/supportive therapy Medical consult for asthma SW consultation for discharge plan and social issues Med management Prozac 20 mg for depression and anxiety, will titrate accordingly Seroquel at the nighttime for voices and mood stabilization Vistaril as needed for anxiety Family involvement Follow up on labs Will monitor closely Pt was educated about risk/benefits and alternatives of medications, coping strategies (safety plan, suicide prevention), relapse prevention, importance of follow up with psychiatrist and therapist, stay away from drugs/alcohol/smoking Estimated Date of D/C: 10/14/18
[2018-10-12] MEDS: Fluticasone-Salmeterol 250-50mcg Diskus IH SCH ×2 (08:36→17:24)
--- NOTE | 2018-10-12 09:54 | PCM.PYCHPN ---
Psychiatric Progress Note - Psychiatric Progress Note Patient seen today, length of contact: 25 min Problems Identified/Issues Discussed: I reviewed assessment and recent notes. Patient was interviewed at bedside. He is calm, groomed and cooperative. Well-oriented to circumstances. Patient repo rts that he is "doing okay". Denies any issues with his medication or any new discomfort or pain. Patient's affect is neutral and he appears related. Responses are logical and relevant. Patient denies any perceptual disturbance including hallucinations or paranoid thoughts. Staff notes indicate that patient has been visible and appropriately socializing with other patients on the unit. Sleeping well with good appetite. There were no behavioral issues overnight. Diagnostic Results: mdd, severe with psychosis PTSD r/o adjustment disorder with depressed and anxious mood Medication Change: No ( ) Medical Record Reviewed: Yes Mental Status Examination - Cognitive Function Orientation: Person, Place, Situation Memory: Intact Attention: Poor (some improvement) Concentration: Poor (some improvement) Association: Loose (some improvement) Fund of Knowledge: WNL - Mood Mood: Depressed ("I feel safe in here"), Anxious - Affect Affect: Constricted, Flat - Formal Thought Process Formal Thought Process: Hallucinations (denied today) - Suicidal Ideation Suicidal Ideation: No - Homicidal Ideation Homicidal Ideation: No Goal/Treatment Plan - Goal/Treatment Plan Need for Continued Stay: Remain at risks for inpatient hospitalization, Severe depression anxiety, Discharge may exacerbated symptoms, Severe functional impairment Progress Toward Problem(s) and Goals/Treatment Plan: * c/w current tx and plan * No new weekend lab results thus far * Vitals reviewed and noted below: Selected Entries 10/11/18 10/11/18 07:24 16:00 Temperature 98.3 F Pulse Rate 63 85 Respiratory 20 Rate Blood Pressure 124/67 126/55 L Estimated Date of D/C: 10/14/18
--- NOTE | 2018-10-12 14:30 | PN ---
DATE: 10/12/2018 SUBJECTIVE: I saw him in the psychiatric floor. He is playing the game, Sinapoly. He is having a lot of fun. He is smiling and laughing. He has really much improved since when he came into the hospital. He is on Advair, Ativan, Geodon, Prozac, Seroquel, Singulair, Ventolin, and Vistaril. PHYSICAL EXAMINATION VITAL SIGNS: He has 97.6 temperature, 81 pulse, 134/81 blood pressure, 16 respiratory rate. HEENT: Head is atraumatic, normocephalic. HEART: Regular rate. LUNGS: Clear to auscultation. EXTREMITIES: No edema. LABORATORY DATA: He did have a CBC on 10/11/2018, 20 on 10/11/2018. His TSH is 1.87. Overall, he is doing much better. He has improved. He has been seen by Psychiatry. Continue to follow. He has plans to go back to school; I like that. I asked him to decrease his marijuana use, continue with good medications for his asthma and improve further major depression with the psychiatric medications. He understands this and continue to follow. So, I think he is improving psychologically. Ector Martin DO MTDD
[2018-10-13] MEDS: Fluticasone-Salmeterol 250-50mcg Diskus IH SCH ×2 (05:55→17:52)
[2018-10-13 06:52] VITALS: O2SAT 100
--- NOTE | 2018-10-13 10:12 | PCM.PYCHPN ---
Psychiatric Progress Note - Psychiatric Progress Note Patient seen today, length of contact: 25 min Problems Identified/Issues Discussed: I reviewed recent notes and patient was interviewed at bedside again today. He remains groomed, calm and well-oriented to circumstances. His focus is good and engaged. Patient continues to report improvement in mood symptoms since admission. He is more hopeful and sleeping better. Patient feels the medications are "going good". Patient denies any new discomfort or pain and appears relaxed and related. Staff notes indicate that patient has been visible and appropriately socializing with other patients on the unit. He seems motivated to for improvement. Sleeping well with good appetite. There were no behavioral issues over the weekend. Diagnostic Results: mdd, severe with psychosis PTSD r/o adjustment disorder with depressed and anxious mood Medication Change: No ( ) Medical Record Reviewed: Yes Mental Status Examination - Cognitive Function Orientation: Person, Place, Situation Memory: Intact Attention: WNL (some improvement) Concentration: WNL (some improvement) Association: WNL (some improvement) Fund of Knowledge: WNL - Mood Mood: Depressed (Improving), Anxious - Affect Affect: Constricted (more reactive and friendly), Flat - Speech Speech: Appropriate - Formal Thought Process Formal Thought Process: Hallucinations (denied all weekend) - Suicidal Ideation Suicidal Ideation: No - Homicidal Ideation Homicidal Ideation: No Goal/Treatment Plan - Goal/Treatment Plan Need for Continued Stay: Remain at risks for inpatient hospitalization, Severe depression anxiety, Discharge may exacerbated symptoms, Severe functional impairment Progress Toward Problem(s) and Goals/Treatment Plan: * c/w current tx and plan * Appreciate f/u by Dr. Martin on 10/12/18 * No new weekend lab results * Vitals reviewed and noted below: 10/12/18 10/12/18 07:00 16:03 Temperature 97.6 F Pulse Rate 81 78 Respiratory 16 Rate Blood Pressure 134/81 125/68 Estimated Date of D/C: 10/14/18
--- NOTE | 2018-10-13 16:44 | PN ---
DATE: 10/13/2018 SUBJECTIVE: I saw him in his room in the psychiatric floor. He is feeling better, improving slowly. He is on Advair, Ativan, Geodon, Prozac, Seroquel, Singulair, Ventolin, and Vistaril. He came in for suicidal ideation, major depression, low potassium, and asthma. He states he is feeling much better. He is having nice conversation with me. He is participating. He is taking his medications. PHYSICAL EXAMINATION: VITAL SIGNS: He has 97.5 temp, 65 pulse, 116/60 blood pressure, 16 respiratory rate, and 100% O2 sat on room air. HEENT: Head is atraumatic, normocephalic. HEART: Regular rate. LUNGS: Clear to auscultation. ABDOMEN: Soft. EXTREMITIES: No edema. NEUROLOGIC: He is in good spirit. He is eating well. LABORATORY DATA: Last labs on 10/11/2018, he did well. ASSESSMENT AND PLAN: He is being seen by Psychiatry. Overall, I am happy with how he is doing as per Psychiatry. Ector Martin DO
[2018-10-14 07:33] VITALS: BP 130/68; PULSE 72; RESP 18; TEMP 97.8
[2018-10-14] MEDS: Fluticasone-Salmeterol 250-50mcg Diskus IH SCH (09:15)
--- NOTE | 2018-10-14 09:38 | PN ---
DATE: 10/14/2018 SUBJECTIVE: I saw him in his room on the psychiatric floor. He is feeling much better. He has no bad thoughts. He is happy . He is eating well. He is in good spirits. He is on Advair, Ativan, Geodon, Prozac, Seroquel, Singulair, Ventolin, and Vistaril. He is breathing well. PHYSICAL EXAMINATION: VITAL SIGNS: He has 97.8 temp, 72 pulse, 130/68 blood pressure, 18 respiratory rate, and 100% O2 sat on room air. HEENT: Head is atraumatic, normocephalic. HEART: Regular rate. LUNGS: Clear to auscultation. ABDOMEN: Soft. EXTREMITIES: No edema. ASSESSMENT AND PLAN: Overall, he is doing quite well. I do think he has improved psychologically. I think he is in a good state right now as per Psychiatry. I think really good job taking care of him and he has improved. I hope he will be back to school and continue his endeavors and as per Psychiatry, we will continue to follow. He is here for suicidal ideation, major depression, pot and marijuana abuse, and asthma. I discuss cutting down on the marijuana or stopping it. Ector Martin DO MTDD
--- NOTE | 2018-10-14 17:46 | PCM.PYCHDC ---
Mental Status Examination - Mental Status Examination Orientation: Person, Place, Situation, Time Memory: Intact Mood: Neutral Affect: Constricted (but reactive and mood congruent) Speech: Appropriate Attention: WNL Concentration: WNL Association: WNL Fund of Knowledge: WNL Formal Thought Process: No Impairment Description of patient's judgement and insight: Pt has improved insight into mental and medical illness, pt was compliant with medications and unit rules and regulations, pt was going to groups, was calm, cooperative, socially appropriate, no behavioral incidents, no agitation, no aggression. Psychotic Thoughts and Behaviors: Pt denied v/a/t hallucinations, denied paranoid ideations, pt does not appear to be psychotic, and thought process is goal directed. Suicidal Ideation: No Current Homicidal Ideation?: No Plan: pt adamantly denied thoughts of harming self or others denied intent or plan. Discharge Summary - Discharge Note Reason for Hospitalization: patient was admitted to the psychiatric inpatient unit for evaluation and stab ilization of depressive symptoms, inability to function, suicidal ideation with a plan to overdose on medication versus to jump off the roof, during this hospitalization pt said that he was going through rough time with his ex- boyfriend, was stressed out, but after a few days of hospitalization pt started to improve, see HPI. Psychiatric History (includes Medical, Family, Personal Hx): as per HPI Laboratory Data: 10/11/18 07:15 10/11/18 07:15 Lab Results 10/11/18 07:15: Sodium 139, Potassium 4.4, Chloride 105, Carbon Dioxide 27, Anion Gap 12, BUN 15, Creatinine 0.9, Est GFR ( Amer) > 60, Est GFR (Non- Af Amer) > 60, Random Glucose 94, Calcium 9.4, Total Bilirubin 0.7, AST 25, ALT 31, Alkaline Phosphatase 66, Total Protein 7.8, Albumin 4.6, Globulin 3.2, Albumin/Globulin Ratio 1.4 10/11/18 07:15: WBC 5.1, RBC 5.79, Hgb 14.2, Hct 44.8, MCV 77.4 L, MCH 24.5 L, MCHC 31.7, RDW 14.3, Plt Count 200, MPV 8.7 10/10/18 06:45: RPR Nonreactive 10/10/18 06:45: TSH 3rd Generation 1.87 10/10/18 06:45: Fasting Glucose 94, Triglycerides 65, Cholesterol 127 L, LDL Cholesterol Direct 69, HDL Cholesterol 59 10/09/18 06:35: Urine Color Yellow, Urine Appearance Clear, Urine pH 6.5, Ur Specific [place] 1.025, Urine Protein Negative, Urine Glucose (UA) Negative, Urine Ketones Negative, Urine Blood Negative, Urine Nitrate Negative, Urine Bilirubin Negative, Urine Urobilinogen 1.0 H, Ur Leukocyte Esterase Negative 10/09/18 06:35: Urine Opiates Screen Negative, Urine Methadone Screen Negative, Ur Barbiturates Screen Negative, Ur Phencyclidine Scrn Negative, Ur Amphetamines Screen Negative, U Benzodiazepines Scrn Negative, U Oth Cocaine Metabols Negative, U Cannabinoids Screen Positive H 10/09/18 06:28: Alcohol, Quantitative < 10 10/09/18 06:28: Sodium 141, Potassium 4.1, Chloride 105, Carbon Dioxide 25, Anion Gap 15, BUN 16, Creatinine 0.8, Est GFR ( Amer) > 60, Est GFR (Non- Af Amer) > 60, Random Glucose 91, Calcium 9.4, Total Bilirubin 0.9, AST 31, ALT 38, Alkaline Phosphatase 73, Total Protein 8.1, Albumin 4.7, Globulin 3.4, Albumin/Globulin Ratio 1.4 10/09/18 06:28: WBC 4.5, RBC 5.85, Hgb 14.5, Hct 45.5, MCV 77.8 L, MCH 24.8 L, MCHC 31.9, RDW 14.4, Plt Count 219, MPV 8.4, Gran % 43.2 L, Lymph % (Auto) 43.9 H, [place]oshone % (Auto) 9.8 H, Eos % (Auto) 2.9, Baso % (Auto) 0.2, Gran # 1.95, Lymph # (Auto) 2.0, [place] # (Auto) 0.4, Eos # (Auto) 0.1, Baso # (Auto) 0.01 10/09/18 06:28: Salicylates < 1 L, Acetaminophen < 10.0 L Vital Signs Temp Pulse Pulse Resp BP Pulse Ox 10/14/18 07:32 97.8 F 72 18 130/68 10/13/18 16:40 66 141/58 L 10/13/18 06:51 97.5 F L 65 16 116/60 100 10/12/18 16:03 78 125/68 10/12/18 07:00 97.6 F 81 16 134/81 10/11/18 16:00 85 126/55 L 10/11/18 07:24 98.3 F 63 20 124/67 10/10/18 15:00 89 140/65 10/10/18 07:20 98.6 F 68 20 127/80 10/09/18 15:39 75 137/74 10/09/18 10:00 99.1 F 74 74 17 131/69 10/09/18 09:36 98.3 F 65 18 98 10/09/18 09:22 98.3 F 64 17 117/72 98 10/09/18 06:38 98.9 F 69 18 140/69 99 Consultations:: List each consultation separately and include: 1. Reason for request. 2. Findings. 3. Follow-up Consultations: medical consult appreciated Summary of Hospital Course include:: 1. Description of specific treatment plan utilized for patients during their course of treatmen. 2. Summarize the time- course for resolution of acute symptoms and/or regressed behaviors. 3. Describe issues identified and worked on during hospitalization. 4. Describe medication utilized. 5. Describe medical problems identified and treated. 6. Reassessment of suicide risk Summary of Hospital Course: shortly patient is 23 year old male, not known previous psychiatric history, self reported history of depression and anxiety, denied history of admission to the psychiatric inpatient unit but reported 3 suicidal attempts in the past most recent was at [facility] when patient overdosed on medications and alcohol, patient recently broke up with his boyfriend, lost his job, no support from his family, patient currently is homeless. Patient came to the hospital looking for help for depression, inability to function, losing weight, patient also reported to have suicidal ideation with a plan to either overdose on medication or jump off the roof, patient requires medication management, observation and stabilization. prior to come to the hospital patient broke the windows in his boyfriend apartment, as superficial scratches in his hands, no needed sutures.please see admission note for more detailed information. during this hospitalization pt had med management, supportive therapy, was seen by SW, pt's ex-boyfriend visited pt. pt was stabilized on the following medications: Prozac 20 mg for depression and anxiety Seroquel at the nighttime for voices and mood stabilization pt tolerated meds well, no side effects observed or reported, AIMS 0, no EPS. 10/09/18 06:28 10/09/18 06:28 Lab Results 10/09/18 06:35: Urine Color Yellow, Urine Appearance Clear, Urine pH 6.5, Ur Specific [place] 1.025, Urine Protein Negative, Urine Glucose (UA) Negative, Urine Ketones Negative, Urine Blood Negative, Urine Nitrate Negative, Urine Bilirubin Negative, Urine Urobilinogen 1.0 H, Ur Leukocyte Esterase Negative 10/09/18 06:35: Urine Opiates Screen Negative, Urine Methadone Screen Negative, Ur Barbiturates Screen Negative, Ur Phencyclidine Scrn Negative, Ur Amphetamines Screen Negative, U Benzodiazepines Scrn Negative, U Oth Cocaine Metabols Negative, U Cannabinoids Screen Positive H 10/09/18 06:28: Alcohol, Quantitative < 10 10/09/18 06:28: Sodium 141, Potassium 4.1, Chloride 105, Carbon Dioxide 25, Anion Gap 15, BUN 16, Creatinine 0.8, Est GFR ( Amer) > 60, Est GFR (Non- Af Amer) > 60, Random Glucose 91, Calcium 9.4, Total Bilirubin 0.9, AST 31, ALT 38, Alkaline Phosphatase 73, Total Protein 8.1, Albumin 4.7, Globulin 3.4, Albumin/Globulin Ratio 1.4 10/09/18 06:28: WBC 4.5, RBC 5.85, Hgb 14.5, Hct 45.5, MCV 77.8 L, MCH 24.8 L, MCHC 31.9, RDW 14.4, Plt Count 219, MPV 8.4, Gran % 43.2 L, Lymph % (Auto) 43.9 H, [place] % (Auto) 9.8 H, Eos % (Auto) 2.9, Baso % (Auto) 0.2, Gran # 1.95, Lymph # (Auto) 2.0, [place] # (Auto) 0.4, Eos # (Auto) 0.1, Baso # (Auto) 0.01 10/09/18 06:28: Salicylates < 1 L, Acetaminophen < 10.0 L Vital Signs Temp Pulse Resp BP Pulse Ox 10/09/18 09:36 98.3 F 65 18 98 10/09/18 09:22 98.3 F 64 17 117/72 98 10/09/18 06:38 98.9 F 69 18 140/69 99 patient's pharmacy was contacted, medication list confirmed [phone] all medications were prescribed on 10/02/2018 but patient was noncompliant with the medications Advair 250/50 twice a day prednisone 4mg po daily Montelukast 10 mg daily Azithromycin 250 mg daily med list was filed in the chart Over the course of this hospitalization pt was attending groups, pt also had medication management, had therapeutic milieu. Overall pt improved significantly, pt's affect became brighter, pt was less depressed, has realistic future oriented plans, pt also does not appear to be psychotic, or anxious, pt was socially appropriate, no behavioral issues, pts insight improved as well and soon pt deemed to be ready for discharge. At the time of the discharge pt denied been depressed, denied thoughts of harming self or others, denied psychotic symptoms, and pt does not appeared to be psychotic, denied been anxious, pt is not in imminent danger to self or others, pt was referred to [facility] Intensive Day [facility] program, information about follow up appointment, time and address provided to the pt, it is patient responsibility to follow up with outpatient clinic, PMD as well as specialists (see SW note for more detailed information). In case pt will need to obtain results of studies pending at discharge pt was provided with contact information of Psychiatric Inpatient unit [phone] as well as Medical Record Department [phone]. Naltrexone treatment not indicated at this time, pt denied using any substances on regular basis Counseling about smoking and alcohol cessation provided pt was provided with prescriptions for all of medications (please see medication reconciliation form) Pt was educated about safety plan in case of worsening of symptoms or in case of suicidal or homicidal ideation call 911 or go to the nearest ER, also was educated to take meds as prescribed and stay away from drugs, pt verbalized understanding. - Diagnosis (1) MDD (major depressive disorder), recurrent, severe, with psychosis Current Visit: Yes Status: Chronic Priority: High (2) PTSD (post-traumatic stress disorder) Current Visit: Yes Status: Chronic Priority: Medium (3) Cannabis abuse Current Visit: Yes Status: Chronic Priority: Medium - Final Diagnosis (DSM 5) Condition upon Discharge: IMPROVED Disposition: HOME/ ROUTINE Follow-up Treatment Plan: At the time of the discharge pt denied been depressed, denied thoughts of harming self or others, denied psychotic symptoms, and pt does not appeared to be psychotic, denied been anxious, pt is not in imminent danger to self or others, pt was referred to [facility] Intensive Day Treatment program, information about follow up appointment, time and address provided to the pt, it is patient responsibility to follow up with outpatient clinic, PMD as well as specialists (see SW note for more detailed information). In case pt will need to obtain results of studies pending at discharge pt was provided with contact information of Psychiatric Inpatient unit [phone] as well as Medical Record Department [phone]. Naltrexone treatment not indicated at this time, pt denied using any substances on regular basis Counseling about smoking and alcohol cessation provided pt was provided with prescriptions for all of medications (please see medication reconciliation form) Pt was educated about safety plan in case of worsening of symptoms or in case of suicidal or homicidal ideation call 911 or go to the nearest ER, also was educated to take meds as prescribed and stay away from drugs, pt verbalized understanding. Prescriptions/Medication Reconciliation: FLUoxetine [Prozac] 20 mg PO DAILY #14 cap Montelukast [Singulair] 10 mg PO DAILY #7 tab QUEtiapine [Seroquel] 25 mg PO HS #14 tab - Smoking Cessation Smoking Cessation Medication prescribed: No Reason for not providing: pt refused - Antipsychotic Medications Pt discharged on 2 or more routine antipsychotic medications: No
== END 2018-10-14 17:30 | disposition home or self-care (01) | DRG 430 ==
LOC: ED 05:53 → ERH 08:15 → PSYC 09:43
PROVIDERS: ADMIT Psychiatry & Neurology Psychiatry; ATTEND Psychiatry & Neurology Psychiatry
PROC: GZ3ZZZZ Medication Management (ICD-10-PCS; principal; 2018-10-09)
DX: F33.3 Major depressive disorder, recurrent, severe with psychotic symptoms (principal); F43.10 Post-traumatic stress disorder, unspecified; F12.10 Cannabis abuse, uncomplicated; J45.909 Unspecified asthma, uncomplicated; R45.851 Suicidal ideations; F17.210 Nicotine dependence, cigarettes, uncomplicated; Z59.0 Homelessness; Z56.0 Unemployment, unspecified; Z91.19 Patient's noncompliance with other medical treatment and regimen; Z91.410 Personal history of adult physical and sexual abuse; Z81.8 Family history of other mental and behavioral disorders

== ENCOUNTER 2019-04-02 14:51 | Emergency (ER) | payer MEDICAID ==
[2019-04-02 14:53] VITALS: BMI 29.9
--- NOTE | 2019-04-02 15:04 | ED PDOC ---
Arrival/HPI - General Time Seen by Provider: 04/02/19 14:56 Historian: Patient - History of Present Illness Narrative History of Present Illness (Text): 04/02/19 15:01 23 y/o male, pmh including PTSD/Depression, nkda, bib for evaluation of depression. Pt. stated that he has chronic depression, woke up with feeling depress today, no homicidal or suicidal ideation, no auditory or visual hallucination, no numbness or tingling, no night sweat, no other medical or psychological complaints. Past Medical History - Provider Review Nursing Documentation Reviewed: Yes - Past History Past History: No Previous - Infectious Disease Hx of Infectious Diseases: None - Reproductive Currently Lactating: No - Cardiac Hx Cardiac Disorders: No Hx Hypertension: No - Pulmonary Hx Tuberculosis: No - Neurological HX Cerebrovascular Accident: No Hx Seizures: No - HEENT Hx HEENT Disorder: Yes Other/Comment: CLOGGED EAR - Renal Hx Renal Disorder: No Hx Kidney Stones: Yes - Endocrine/Metabolic Hx Endocrine Disorders: No - Hematological/Oncological Hx Cancer: No - Integumentary Hx Dermatological Disorder: No - Musculoskeletal/Rheumatological Hx Musculoskeletal Disorders: No - Gastrointestinal Hx Gastrointestinal Disorders: No - Genitourinary/Gynecological Hx Sexually Transmitted Diseases: No - Psychiatric Hx Psychophysiologic Disorder: Yes Hx Depression: Yes (NEW ONSET) Hx Substance Use: Yes - Anesthesia Hx Anesthesia: No Family/Social History - Physician Review Nursing Documentation Reviewed: Yes Family/Social History: Unknown Family HX Smoking Status: Light Smoker < 10 Cigarettes Daily Hx Alcohol Use: Yes Hx Substance Use: Yes Substance used: marijuana Hx Substance Use Treatment: No Allergies/Home Meds Allergies/Adverse Reactions: Allergies pollen extracts Allergy (Verified 04/02/19 15:13) CONGESTION shellfish derived Allergy (Verified 04/02/19 15:13) ANAPHYLAXIS Home Medications: Home Meds Medication Instructions Recorded Confirmed Albuterol Sulfate [Ventolin Hfa] 1 puff IH BID PRN 07/04/18 10/10/18 Review of Systems - Review of Systems Constitutional: absent: Fatigue, Fevers Eyes: absent: Vision Changes ENT: absent: Hearing Changes Respiratory: absent: SOB, Cough Cardiovascular: absent: Chest Pain, Syncope Gastrointestinal: absent: Abdominal Pain, Diarrhea, Nausea, Vomiting, Anorexia Genitourinary Male: absent: Dysuria Musculoskeletal: absent: Arthralgias, Back Pain Skin: absent: Rash, Pruritis Neurological: absent: Headache, Dizziness Hemo/Lymphatic: absent: Adenopathy Psychiatric: Depression. absent: Anxiety, Suicidal Ideation Physical Exam - Systems Exam Head: Present: Atraumatic, Normocephalic Pupils: Present: PERRL Extroacular Muscles: Present: EOMI Conjunctiva: Present: Normal Mouth: Present: Moist Mucous Membranes Neck: Present: Normal Range of Motion Respiratory/Chest: Present: Clear to Auscultation, Good Air Exchange. No: Respiratory Distress, Accessory Muscle Use Cardiovascular: Present: Regular Rate and Rhythm, Normal S1, S2. No: Murmurs Abdomen: No: Tenderness, Distention, Peritoneal Signs Back: Present: Normal Inspection Upper Extremity: Present: Normal Inspection. No: Cyanosis, Edema Lower Extremity: Present: Normal Inspection. No: Edema Neurological: Present: GCS=15, CN II-XII Intact, Speech Normal Skin: Present: Warm, Dry, Normal Color. No: Rashes Psychiatric: Present: Alert, Oriented x 3, Normal Insight, Normal Concentration, Depressed Mood Medical Decision Making ED Course and Treatment: 04/02/19 15:03 -labs -PES paged -Observe and reassess 04/02/19 16:26 -Labs are nonsignificant -Alcohol within normal limit -UDS show +cannabinoid. -Pt. is medically clear and stable for psychiatric evaluation. 04/02/19 16:26 -Pt. evaluated by the PES screener and discussed with psy building energy consultant, stated that the patient doesn't meet criteria for admission psychiatrically so the patient can be discharged home. Pt. has no homicidal/suicidal ideation, no auditory or visual hallucination. -Discharge home with education on follow up with the outpatient psychiatric within 2 days, return to the Er for any new or worsening signs or symptoms. - PA / LOCKS TENDER / Resident Statement MD/DO has reviewed & agrees with the documentation as recorded. Disposition/Present on Arrival - Present on Arrival Any Indicators Present on Arrival: No History of DVT/PE: No History of Uncontrolled Diabetes: No Urinary Catheter: No History of Decub. Ulcer: No History Surgical Site Infection Following: None - Disposition Have Diagnosis and Disposition been Completed?: Yes Diagnosis: Depression Disposition: HOME/ ROUTINE Disposition Time: 15:03 Patient Plan: Discharge Condition: GOOD Additional Instructions: Discharge home with education on follow up with the outpatient psychiatric within 2 days, return to the Er for any new or worsening signs or symptoms. Referrals: Anali TELLO,Stephany Uribe APN [Primary Care Provider] - [facility] with [facility]] - Follow up with primary Forms: WORK NOTE
[2019-04-02 15:53] LABS: BASO # 0.01 K/mm3 (0.0-2.0); BASO % 0.2 % (0.0-3.0); EOS # 0.1 (0.0-0.7); EOS % 2.4 % (1.5-5.0); HEMOGLOBIN 14.2 g/dL (14.0-18.0); LYMPH # 2.1 (1.2-3.4); LYMPH % 36.2 % (22.0-35.0); MEAN CORPUSCULAR HEMOGLOBIN 24.4 pg (25.0-35.0); MEAN CORPUSCULAR HGB CONC 31.3 g/dl (31.0-37.0); MEAN PLATELET VOLUME 8.9 fl (7.0-11.0); MONO # 0.4 (0.1-0.6); MONO % 6.7 % (1.0-6.0); RBC 5.81 10^6/uL (3.5-6.1); WHITE BLOOD COUNT 5.8 10^3/uL (4.5-11.0)
[2019-04-02 16:04] LABS: BLOOD UREA NITROGEN 13 mg/dL (7-21); CALCIUM 9.5 mg/dL (8.4-10.5); GFR NON-AFRICAN AMERICAN > 60
[2019-04-02 16:16] LABS: BARBITURATES, UR NEGATIVE (NEGATIVE); BENZODIAZEPINES, UR NEGATIVE (NEGATIVE); OPIATES, UR NEGATIVE (NEGATIVE); PHENCYCLIDINE, UR NEGATIVE (NEGATIVE)
[2019-04-02 16:29] VITALS: RESP 18
[2019-04-02 16:35] VITALS: BP 123/87; PULSE 82; TEMP 98.5; O2SAT 99
== END 2019-04-02 16:43 | disposition home or self-care (01) ==
LOC: ED 14:51
DX: F32.9 Major depressive disorder, single episode, unspecified (principal); F17.210 Nicotine dependence, cigarettes, uncomplicated